=== PATIENT | male | born 1960 | race Caucasian/White ===

== ENCOUNTER → 2017-05-31 | Outpatient (CLI) | payer BC ==
--- NOTE | 2017-05-31 12:48 | US ---
EXAMINATION TYPE: US abdomen complete DATE OF EXAM: 05/31/2017 COMPARISON: US 05/26/2015, US 02/01/2017 CLINICAL HISTORY: K76.89 ABN LIVER FUNCTIONS. Cholecystectomy EXAM MEASUREMENTS: Liver Length: 17.1 cm Gallbladder Wall: Surgically absent CBD: 0.4 cm Spleen: 9.3 cm Right Kidney: 12.2 x 5.0 x 5.3 cm Left Kidney: 12.0 x 5.0 x 5.4 cm Pancreas: Tail obscured by overlying bowel gas, visualized portions show no abnormalities Liver: Coarse, heterogeneous echotexture. Measuring upper limits of normal Gallbladder: surgically absent Evidence for sonographic Villagran's sign: No CBD: wnl as visualized Spleen: wnl Right Kidney: No hydronephrosis or masses seen Left Kidney: No hydronephrosis or masses seen Upper IVC: wnl Abd Aorta: Limited visualization due to overlying bowel gas, visualized portions wnl IMPRESSION: 1. No acute ultrasound abnormality.
== END | disposition home or self-care (01) ==
LOC: RADUSWWP 07:40
PROVIDERS: ATTEND Internal Medicine
DX: K76.89 Other specified diseases of liver (principal)
CPT/HCPCS: 76700

== ENCOUNTER → 2018-04-02 | Outpatient (CLI) | payer BC ==
--- NOTE | 2018-04-02 07:37 | MR ---
EXAMINATION TYPE: MR cervical spine wo con DATE OF EXAM: 04/02/2018 COMPARISON: None HISTORY: Neck pain, stenosis CONTRAST: Performed utilizing 0 mL intravenous Gadavist gadolinium contrast. TECHNIQUE: Multiplanar multiecho imaging on a 3.0 Gila magnet is performed through the cervical spin e. FINDINGS: The craniovertebral junction is normal. Vertebral body alignment is normal. C7-T1: There is a central subligamentous disc herniation minimally anterior thecal sac compression. No cord contact or spinal canal stenosis is present. This has extension posterior to the C7 level. Ne ural foramen are patent. C6-7: Broad-based disc bulge is present with mild anterior thecal sac compression. No spinal canal st enosis present. Uncovertebral joint hypertrophy is present greater on the right causing moderate righ t foraminal stenosis.. C5-6: There is loss of disc height is level. Endplate changes and mild anterior thecal sac flattening . Uncovertebral joint hypertrophy is moderate bilateral foraminal narrowing.. C4-5: Broad-based disc bulge is moderate anterior thecal sac compression. Cord contact is present. No AP spinal canal stenosis present. There is borderline narrowing however. Neural foramen on the left is moderately narrowed due to uncovertebral joint hypertrophy.. C3-4: There is a central focal disc bulge which may have superior extension subligamentous region wit h mild anterior thecal sac compression. Cord contact is present. No spinal canal stenosis or neural f oraminal stenosis is present. C2-3: Broad-based disc bulge has moderate anterior thecal sac compression. No cord contact is evident . No spinal canal stenosis or neural foraminal stenosis is present.. IMPRESSIONS: 1. Subligamentous disc extension at the C3-4 level with mild anterior thecal sac compression and C7-T 1 minimal anterior thecal sac compression. 2. Disc bulging C6-7 C4-5 with anterior thecal sac compression. 3. There is moderate anterior thecal sac compression at C4-5 due to the disc bulging which has cord c ontact. Some spinal canal narrowing is present. 4. Mild to moderate foraminal narrowing due to uncovertebral joint hypertrophy discussed above.
== END | disposition home or self-care (01) ==
LOC: RADMRIMAIN 06:48
PROVIDERS: ATTEND Orthopaedic Surgery Orthopaedic Surgery of the Spine
DX: M48.02 Spinal stenosis, cervical region (principal); M50.221 Other cervical disc displacement at C4-C5 level
CPT/HCPCS: 72141

== ENCOUNTER → 2018-07-02 | Outpatient (CLI) | payer OTHER, BC ==
--- NOTE | 2018-07-02 15:39 | XR ---
EXAMINATION TYPE: XR forearm RT DATE OF EXAM: 07/02/2018 COMPARISON: NONE HISTORY: Pain Two views of the forearm demonstrate that the osseous structures appear to be intact and the joint sp aces appear to be preserved. There is no acute fracture or dislocation. Large olecranon spur noted. IMPRESSION: 1. No acute fracture or dislocation. Olecranon spur noted.
== END | disposition home or self-care (01) ==
LOC: RADXRYALE 15:18
PROVIDERS: ATTEND Internal Medicine
DX: M79.631 Pain in right forearm (principal)

== ENCOUNTER → 2018-12-26 | Outpatient (CLI) | payer OTHER ==
[2018-12-26 11:04] LABS: Basophils # (A) 0.1 k/uL (0-0.2); Basophils % (A) 2 %; Eosinophils # (A) 0.4 k/uL (0-0.7); Eosinophils % (A) 7 %; HCT 48.8 % (39.0-53.0); Lymphocytes # (A) 1.6 k/uL (1.0-4.8); Lymphocytes % (A) 29 %; MCH 30.8 pg (25.0-35.0); MCHC 34.7 g/dL (31.0-37.0); MCV 88.7 fL (80.0-100.0); Mean Platelet Volume 8.3; Monocytes # (A) 0.4 k/uL (0-1.0); Monocytes % (A) 8 %; Neutrophils # (A) 2.8 k/uL (1.3-7.7); Neutrophils % (A) 51 %; Platelet Count 188 k/uL (150-450); RBC 5.51 m/uL (4.30-5.90); RDW 12.8 % (11.5-15.5); WBC 5.5 k/uL (3.8-10.6)
[2018-12-26 11:15] LABS: Appearance,Urine Clear (Clear); Bilirubin,Urine Negative (Negative); Blood,Urine Negative (Negative); Color,Urine Yellow; Glucose,Urine (UA) Negative (Negative); Ketones,Urine Negative (Negative); Leukocyte Esterase,Urine Negative (Negative); Nitrite,Urine Negative (Negative); PH, Urine 5.5 (5.0-8.0); Protein,Urine Negative (Negative); Specific Gravity,Urine 1.026 (1.001-1.035); Urobilinogen,Urine <2.0 mg/dL (<2.0)
[2018-12-26 11:16] LABS: INR 0.9 (<1.2); Partial Thromboplastin Time 25.5 sec (22.0-30.0); Prothrombin Time 10.2 sec (9.0-12.0)
[2018-12-26 11:27] LABS: African American GFR (CKD) >90 (>60 ml/min/1.73 sqM); Anion Gap 9 mmol/L; Blood Urea Nitrogen 22 mg/dL (9-20); Calcium 9.5 mg/dL (8.4-10.2); Carbon Dioxide 22 mmol/L (22-30); Chloride 107 mmol/L (98-107); Glucose 79 mg/dL (74-99); Sodium 138 mmol/L (137-145)
[2018-12-26 11:29] LABS: Potassium 5.3 mmol/L (3.5-5.1)
--- NOTE | 2018-12-26 11:45 | XR ---
EXAMINATION TYPE: XR chest 2V DATE OF EXAM: 12/26/2018 COMPARISON: 05/24/2015 INDICATION: Z01.818 TECHNIQUE: Frontal and lateral views of the chest are obtained. FINDINGS: The heart size is normal. The pulmonary vasculature is normal. The lungs are clear. IMPRESSION: 1. No acute pulmonary process.
== END | disposition home or self-care (01) ==
LOC: LABPAT 09:57
PROVIDERS: ATTEND Orthopaedic Surgery Orthopaedic Surgery of the Spine
DX: Z01.812 Encounter for preprocedural laboratory examination (principal); Z01.818 Encounter for other preprocedural examination; M48.02 Spinal stenosis, cervical region
CPT/HCPCS: 36415; 71046; 80048; 81003; 85025; 85610; 85730

== ENCOUNTER 2019-01-01 05:49 | Observation (INO) | payer BC, OTHER ==
[2019-01-01] MEDS ORDERED: NITROGLYCERIN SL TABS 0.4 MG TAB SUBLINGUAL STA (06:05)
[2019-01-01] MEDS ORDERED: ASPIRIN 81 MG PO STA (06:05)
--- NOTE | 2019-01-01 06:09 | ED ---
Chest Pain HPI - General Chief Complaint: Chest Pain Stated Complaint: Chest pain Time Seen by Provider: 01/01/19 05:53 Source: patient, RN notes reviewed Mode of arrival: ambulatory Limitations: no limitations - History of Present Illness Initial Comments: 58-year-old male presents emergency Department chief complaint of chest pain that started last night. Patient states is more of a sudden onset of discomfort. Patient states that his left-sided radiates to his shoulder. Patient states he went to sleep thinking it was just gas pain, states he woke up the symptoms again this morning. Patient states he did feel slightly diaphoretic and nauseated. Patient had no vomiting. Patient states that he has no cardiac history denies history of hypertension, hyperlipidemia, diabetes no smoking history. Patient states he just had a have physical for surgical clearance for cervical decompression. Patient denies any family heart history. Patient states does hurt when he takes a deep inspiration. Denies any leg pain, leg swelling. - Related Data Home Medications Medication Instructions Recorded Confirmed Pantoprazole Sodium [Protonix] 20 tab PO DAILY 02/02/15 12/29/18 Celecoxib [CeleBREX] 50 mg PO DAILY 12/29/18 12/29/18 Multivitamins, Thera [Multivitamin 1 tab PO DAILY 12/29/18 12/29/18 (formulary)] traMADol HCL [Ultram] 50 mg PO BID 12/29/18 12/29/18 Allergies Allergy/AdvReac Type Severity Reaction Status Date / Time No Known Allergies Allergy Verified 12/29/18 14:38 Review of Systems ROS Statement: Those systems with pertinent positive or pertinent negative responses have been documented in the HPI. ROS Other: All systems not noted in ROS Statement are negative. EKG Findings - EKG Comments: EKG Findings:: EKG performed at 5:5 feet normal sinus rhythm rate of 92, IA 176 QRS 76 QT/QTC 354/437. Patient depression. Past Medical History Past Medical History: GERD/Reflux Additional Past Medical History / Comment(s): arthritis History of Any Multi-Drug Resistant Organisms: None Reported Past Surgical History: Appendectomy, Cholecystectomy, Orthopedic Surgery Additional Past Surgical History / Comment(s): vasectomy, lasic right eye Past Psychological History: No Psychological Hx Reported Past Alcohol Use History: None Reported, Occasional General Exam Limitations: no limitations General appearance: alert, in no apparent distress Head exam: Present: atraumatic, normocephalic, normal inspection Eye exam: Present: normal appearance, PERRL, EOMI. Absent: scleral icterus, conjunctival injection, periorbital swelling ENT exam: Present: normal exam, normal oropharynx, mucous membranes moist Neck exam: Present: normal inspection, full ROM. Absent: tenderness, meningismus, lymphadenopathy Respiratory exam: Present: normal lung sounds bilaterally. Absent: respiratory distress, wheezes, rales, rhonchi, stridor Cardiovascular Exam: Present: regular rate, normal rhythm, normal heart sounds. Absent: systolic murmur, diastolic murmur, rubs, gallop, clicks GI/Abdominal exam: Present: soft, normal bowel sounds. Absent: distended, tenderness, guarding, rebound, rigid Neurological exam: Present: alert, oriented X3, CN II-XII intact Skin exam: Present: warm, dry, intact, normal color. Absent: rash Course Vital Signs 01/01/19 01/01/19 01/01/19 05:50 06:10 07:03 Temperature 98.3 F 98.2 F Pulse Rate 93 89 70 Respiratory 20 17 16 Rate Blood Pressure 149/99 143/95 117/81 O2 Sat by Pulse 97 91 L 99 Oximetry Chest Pain MDM - MDM 58-year-old male presents from for chest pain. Patient was a chest pain workup is negative this time patient will be admitted for chest pain observation and workup. Disposition Clinical Impression: Chest pain Disposition: ADMITTED IP TO THIS HOSP Referrals: None,Stated [REFERRING] - 1-2 days
[2019-01-01 06:21] LABS: Basophils # (A) 0.1 k/uL (0-0.2); Basophils % (A) 1 %; Eosinophils # (A) 0.2 k/uL (0-0.7); Eosinophils % (A) 2 %; HCT 46.4 % (39.0-53.0); HGB 15.6 gm/dL (13.0-17.5); Lymphocytes # (A) 1.2 k/uL (1.0-4.8); Lymphocytes % (A) 9 %; MCHC 33.7 g/dL (31.0-37.0); MCV 89.1 fL (80.0-100.0); Mean Platelet Volume 7.5; Monocytes # (A) 0.6 k/uL (0-1.0); Monocytes % (A) 4 %; Neutrophils # (A) 11.1 k/uL (1.3-7.7); Neutrophils % (A) 83 %; Platelet Count 180 k/uL (150-450); RDW 12.8 % (11.5-15.5); WBC 13.3 k/uL (3.8-10.6)
[2019-01-01 06:29] LABS: ALT 108 U/L (21-72); AST 39 U/L (17-59); African American GFR (CKD) >90 (>60 ml/min/1.73 sqM); Albumin 4.6 g/dL (3.5-5.0); Alkaline Phosphatase 59 U/L (38-126); Anion Gap 12 mmol/L; Blood Urea Nitrogen 24 mg/dL (9-20); Calcium 9.9 mg/dL (8.4-10.2); Carbon Dioxide 22 mmol/L (22-30); Chloride 105 mmol/L (98-107); Glucose 128 mg/dL (74-99); Magnesium 1.9 mg/dL (1.6-2.3); Potassium 4.5 mmol/L (3.5-5.1); Sodium 139 mmol/L (137-145); Total Protein 7.9 g/dL (6.3-8.2)
[2019-01-01 06:37] LABS: D-Dimer 0.21 mg/L FEU (<0.60); Partial Thromboplastin Time 24.8 sec (22.0-30.0); Prothrombin Time 10.3 sec (9.0-12.0)
--- NOTE | 2019-01-01 07:02 | XR ---
EXAM: XR Chest, 2 Views CLINICAL HISTORY: Chest Pain TECHNIQUE: Frontal and lateral views of the chest. COMPARISON: 12/26/2018 FINDINGS: Lungs: Mild peribronchial cuffing is suspected, more conspicuous on this study than the prior, which may represent infectious versus inflammatory small airways disease. Pleural space: Unremarkable. No pneumothorax. Heart: Unremarkable. No cardiomegaly. Mediastinum: Unremarkable. Bones/joints: Unremarkable. IMPRESSION: Mild peribronchial cuffing is suspected, more conspicuous on this study than the prior, which may represent infectious versus inflammatory small airways disease.
[2019-01-01] MEDS ORDERED: NITROGLYCERIN SL TABS 0.4 MG TAB SUBLINGUAL PRN (07:31)
[2019-01-01] MEDS ORDERED: HEPARIN SODIUM,PORCINE 5,000 UNIT/ML 1 ML VIAL IV ONE (07:31)
[2019-01-01] MEDS ORDERED: HEPARIN SOD,PORK IN 0.45% NACL 25,000 UNIT in 0.45% NACL 1 250ML.BAG IV SCH (07:45)
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
[2019-01-01] MEDS ORDERED: TEMAZEPAM 15 MG CAP PO PRN (17:41)
[2019-01-01] MEDS: HYDROcodone/APAP 10-325MG 1 EACH TAB PO PRN (18:22)
[2019-01-02] MEDS: HYDROcodone/APAP 10-325MG 1 EACH TAB PO PRN ×2 (03:28→11:00)
[2019-01-02 04:28] LABS: Cholesterol 200 mg/dL (<200); HDL Cholesterol 47 mg/dL (40-60); LDL Cholesterol,Calculated 131 mg/dL (0-99); Triglycerides 109 mg/dL (<150)
[2019-01-02] MEDS ORDERED: AMINOPHYLLINE 500 MG/20 ML VIAL IV PRN (06:00)
[2019-01-02] MEDS ORDERED: CAFFEINE CITRATE 60 MG/3 ML VIAL IV PRN (06:00)
[2019-01-02] MEDS ORDERED: DIPYRIDAMOLE 62 MG in SODIUM CHLORIDE 0.9% 37.6 ML IV ONE (07:00)
[2019-01-02] MEDS ORDERED: PANTOPRAZOLE 40 MG TABLET PO SCH (07:30)
[2019-01-02] MEDS ORDERED: MELOXICAM 7.5 MG TAB PO SCH (09:00)
[2019-01-02] MEDS ORDERED: ASPIRIN 81 MG PO SCH (09:00)
[2019-01-02] MEDS ORDERED: MULTIVITAMINS, THERA 1 EACH TAB PO SCH (09:00)
[2019-01-02] MEDS ORDERED: ASPIRIN 325 MG TAB PO SCH (09:00)
[2019-01-02 09:38] VITALS: TEMP 97.9
[2019-01-02] MEDS ORDERED: AMINOPHYLLINE 500 MG/20 ML VIAL IV ONE (09:55)
--- NOTE | 2019-01-02 11:03 | NM ---
EXAMINATION TYPE: NM stress persantine cardiolit DATE OF EXAM: 01/02/2019 COMPARISON: NONE HISTORY: Chest pain TECHNIQUE: After the intravenous administration of 10.1 mCi Tc 99m Sestamibi - Cardiolite resting SP ECT images acquired 45 minutes post injection. The patient received 62 mg Persantine, 25.2 mCi Tc 99m Sestamibi - Stress images obtained 30 minutes post injection FINDINGS: Review of stress and rest SPECT images demonstrates no distinct perfusion abnormality. Gated analysi s shows normal wall motion with an estimated left ventricular ejection fraction of 56 %. TID is withi n normal limits measured at 1.08. IMPRESSION: No scintigraphic evidence for reversible ischemia.
[2019-01-02 12:18] VITALS: BP 167/82; PULSE 55; RESP 17
--- NOTE | 2019-01-02 14:36 | ECHOF ---
Referral Reason:cp MEASUREMENTS -------- HEIGHT: 175.3 cm WEIGHT: 108.9 kg BP: RVIDd: 3.9 cm (< 3.3) IVSd: 1.1 cm (0.6 - 1.1) LVIDd: 4.1 cm (3.9 - 5.3) LVPWd: 1.5 cm (0.6 - 1.1) IVSs: 1.4 cm LVIDs: 3.5 cm LVPWs: 1.1 cm Ao Diam: 3.2 cm (2.0 - 3.7) AV Cusp: 2.0 cm (1.5 - 2.6) MV EXCURSION: 24.599 mm (> 18.000) MV EF SLOPE: 146 mm/s (70 - 150) EPSS: 0.3 cm MV E Pako: 0.60 m/s MV DecT: 181 ms MV A Pako: 0.64 m/s MV E/A Ratio: 0.93 FINDINGS -------- Sinus rhythm. This was a techncally difficult study with suboptimal views, , Lumason utilized for enhancement of im ages. The left ventricular size is normal. There is mild concentric left ventricular hypertrophy. Overa ll left ventricular systolic function is normal with, an EF between 55 - 60 %. The right ventricle is mild to moderately enlarged. The left atrial size is normal. The right atrial size is normal. 5.0mg OF Lumason UTLIZED: 2 OR MORE WALL SEGMENTS NOT VISUALIZED. The aortic valve was not well visualized. Mild mitral regurgitation is present. Mild tricuspid regurgitation present. Right ventricular systolic pressure is normal at < 35 mmHg. There is no evidence of pulmonary hypertension. The pulmonic valve was not well visualized. The aortic root size is normal. There is no pericardial effusion. CONCLUSIONS -------- 1. Sinus rhythm. 2. This was a techncally difficult study with suboptimal views, , Lumason utilized for enhancement of images. 3. The left ventricular size is normal. 4. There is mild concentric left ventricular hypertrophy. 5. Overall left ventricular systolic function is normal with, an EF between 55 - 60 %. 6. The right ventricle is mild to moderately enlarged. 7. The left atrial size is normal. 8. The right atrial size is normal. 9. 5.0mg OF Lumason UTLIZED: 2 OR MORE WALL SEGMENTS NOT VISUALIZED. 10. The aortic valve was not well visualized. 11. Mild mitral regurgitation is present. 12. Mild tricuspid regurgitation present. 13. Right ventricular systolic pressure is normal at < 35 mmHg. 14. There is no evidence of pulmonary hypertension. 15. The pulmonic valve was not well visualized. 16. The aortic root size is normal. 17. There is no pericardial effusion. IN CLASS SPECIAL EDUCATION TEACHER: Sujata Robles RDCS
--- NOTE | 2019-01-02 15:37 | EST ---
EXERCISE STRESS AGE: 58 SEX: Male HT: 69" WT: 240# PROTOCOL: Persantine Cardiolite STAGE: DURATION OF EXERCISE: HEART RATE REST: 59 BLOOD PRESSURE REST: 137/83 MAXIMUM HEART RATE ACHIEVED: 96 MAXIMUM BLOOD PRESSURE: 137/83 85% MPHR: 100% MPHR: METS: INDICATIONS: Chest pain. CLINICAL INFORMATION: A Persantine Cardiolite study was performed. Persantine infusion was given over a period of 4 minutes. The resting heart rate is 59 beats per minute with a maximum heart rate of 86 beats per minute. Maximum blood pressure of 131/54 mmHg was noted. Resting EKG shows normal sinus rhythm with normal CT interval and QRS duration and normal ST-T waves. No ST-segment depression suggestive of ischemia is noted. The results of the nuclear study will follow. RASHI / CELESTINAN: [id number] /
--- NOTE | 2019-01-02 15:42 | P.DS ---
Providers Date of admission: 01/01/19 07:34 Attending physician: Keith Burleson Consults: 01/01/19 07:31 Consult Physician Urgent Consulting Provider: Simone Barragan Consult Reason/Comments: chest pain Do you want consulting provider notified?: Yes Primary care physician: Edwige Vazquez Hospital Course: Patient was admitted for chest pain does have some typical features patient was ruled out acute coronary syndromes after which the patient underwent stress test which was negative. Patient's symptomatology is probably because of cervical spine disease. Patient does have bronchitis with some bronchospasm for which patient will be given doxycycline and albuterol patient will be discharged today patient can get the his cervical spine decompression surgery. PHYSICAL EXAMINATION: GENERAL: The patient is alert and oriented x3, not in any acute distress. Well developed, well nourished. HEENT: Pupils are round and equally reacting to light. EOMI. No scleral icterus. No conjunctival pallor. Normocephalic, atraumatic. No pharyngeal erythema. No thyromegaly. CARDIOVASCULAR: S1 and S2 present. No murmurs, rubs, or gallops. PULMONARY: Chest is clear to auscultation, no wheezing or crackles. ABDOMEN: Soft, nontender, nondistended, normoactive bowel sounds. No palpable organomegaly. MUSCULOSKELETAL: No joint swelling or deformity. EXTREMITIES: No cyanosis, clubbing, or pedal edema. NEUROLOGICAL: Gross neurological examination did not reveal any focal deficits. SKIN: No rashes. Rest of the chronic medical problems and hospitalization course please refer to my dictation of H&P from yesterday Plan - Discharge Summary Discharge Rx Participant: No New Discharge Prescriptions: New Doxycycline Monohydrate [Monodox] 100 mg PO BID 3 Days #6 cap Albuterol Inhaler [Ventolin Hfa Inhaler] 1 - 2 puff INHALATION Q6HR PRN #1 inhaler PRN Reason: Shortness Of Breath Or Wheezing No Action Pantoprazole Sodium [Protonix] 40 mg PO DAILY traMADol HCL [Ultram] 50 mg PO BID Multivitamins, Thera [Multivitamin (formulary)] 1 tab PO DAILY Celecoxib [CeleBREX] 200 mg PO DAILY Discharge Medication List Pantoprazole Sodium [Protonix] 40 mg PO DAILY 02/02/15 [History] Multivitamins, Thera [Multivitamin (formulary)] 1 tab PO DAILY 12/29/18 [History] traMADol HCL [Ultram] 50 mg PO BID 12/29/18 [History] Celecoxib [CeleBREX] 200 mg PO DAILY 01/01/19 [History] Albuterol Inhaler [Ventolin Hfa Inhaler] 1 - 2 puff INHALATION Q6HR PRN #1 inhaler 01/02/19 [Rx] Doxycycline Monohydrate [Monodox] 100 mg PO BID 3 Days #6 cap 01/02/19 [Rx] Follow up Appointment(s)/Referral(s): None,Stated [REFERRING] - 1-2 days Edwige Vazquez MD [Primary Care Provider] - 1 Week Discharge Disposition: HOME SELF-CARE
== END 2019-01-02 13:43 | disposition home or self-care (01) ==
LOC: EC 05:49 → 1SOBS 07:34
PROVIDERS: ADMIT Hospitalist; ATTEND Hospitalist
DX: R07.89 Other chest pain (principal); R07.81 Pleurodynia; J98.01 Acute bronchospasm; J40 Bronchitis, not specified as acute or chronic; R03.0 Elevated blood-pressure reading, without diagnosis of hypertension; R61 Generalized hyperhidrosis; R11.0 Nausea; R42 Dizziness and giddiness; E66.9 Obesity, unspecified; Z68.35 Body mass index [BMI] 35.0-35.9, adult; K21.9 Gastro-esophageal reflux disease without esophagitis; M19.90 Unspecified osteoarthritis, unspecified site; M54.2 Cervicalgia; M54.9 Dorsalgia, unspecified; M25.512 Pain in left shoulder; M25.511 Pain in right shoulder; G89.29 Other chronic pain; Z79.1 Long term (current) use of non-steroidal anti-inflammatories (NSAID); Z79.899 Other long term (current) drug therapy; Z80.3 Family history of malignant neoplasm of breast; Z82.49 Family history of ischemic heart disease and other diseases of the circulatory system; Z83.3 Family history of diabetes mellitus; Z98.1 Arthrodesis status
CPT/HCPCS: 96366 ×2; 96376; 96365; 99285; 36415; 93005; 93017; 93306; 85379; 80061; 80053; 83690; 83735; 84484; 85025; 85610; 85730; 71046; 78452; G0378 ×2; A9500; J1644 ×2; J0280; J1245; Q9950

== ENCOUNTER 2019-01-05 11:58 | Observation (INO) | payer OTHER, BC ==
[2018-12-29 14:48] VITALS: BMI 35.4
[~2019-01-05 11:58] MED LIST: BACITRACIN 50,000 UNIT, POLYMYXIN B 500,000 UNIT in SODIUM CHLORIDE 0.9% IRRIGATIO 1,00... IRRIGATION ONE; DEXAMETHASONE SOD PHOSPHATE 10 MG/ML 1 ML VIAL IV ONE; LIDOCAINE 1% 20 ML VIAL (10MG/ML) FOR IV START INTRADERMA PRN; MIDAZOLAM 2 MG/2 ML VIAL IV PRN; fentaNYL (PF) 50 MCG/ML 2 ML AMP IV PRN
[2019-01-05] MEDS: LACTATED RINGERS 1,000 ML IV SCH ×4 (12:22→22:14)
[2019-01-05] MEDS ORDERED: ePHEDrine SULFATE/0.9% NACL/PF 50 MG/5 ML SYRINGE IV ONE (13:13)
[2019-01-05] MEDS ORDERED: DEXAMETHASONE SOD PHOS (MDV) 100 MG/10 ML VIAL ONE (13:13)
[2019-01-05] MEDS ORDERED: NEOSTIGMINE 1 MG/ML 10 ML VIAL ONE (13:13)
[2019-01-05] MEDS ORDERED: HYDROmorphone (PF) 1 MG/ML ONE (13:13)
[2019-01-05] MEDS ORDERED: GLYCOPYRROLATE 0.2 MG/ML 2 ML VIAL ONE (13:13)
[2019-01-05] MEDS ORDERED: MIDAZOLAM 2 MG/2 ML VIAL ONE (13:13)
[2019-01-05] MEDS ORDERED: SUCCINYLCHOLINE CHLORIDE 100 MG/5 ML SYR IV ONE (13:13)
[2019-01-05] MEDS ORDERED: PROPOFOL 10 MG/ML 20 ML VIAL IV ONE (13:13)
[2019-01-05] MEDS ORDERED: fentaNYL (PF) 50 MCG/ML 2 ML AMP ONE (13:13)
[2019-01-05] MEDS ORDERED: ALBUTEROL INHALER 60 PUFF/8 GM INHALER INHALATION ONE (13:13)
[2019-01-05] MEDS ORDERED: ROCURONIUM BROMIDE 10 MG/ML 10 ML VIAL IV ONE (13:13)
[2019-01-05] MEDS ORDERED: LIDOCAINE 1% INJ 10MG/ML (20 ML MDV) ONE (13:13)
[2019-01-05] MEDS ORDERED: BUPIVACAINE (PF) 0.25% 30 ML VIAL SQ ONE ×3 (13:50)
--- NOTE | 2019-01-05 14:41 | XR ---
EXAMINATION TYPE: XR cervical spine 1V DATE OF EXAM: 01/05/2019 COMPARISON: NONE HISTORY: Intraoperative needle placement TECHNIQUE: Single intraoperative crosstable lateral view was performed of the cervical spine FINDINGS/IMPRESSION: Localization of the C4-C5 intervertebral disc space level is seen from an anteri or approach in an intubated patient in this crosstable lateral intraoperative single view of the cerv ical spine.
[2019-01-05] MEDS ORDERED: LACTATED RINGERS 1,000 ML IV ONE (14:51)
[2019-01-05] MEDS ORDERED: ONDANSETRON 4 MG/2 ML VIAL IVP PRN (15:33)
[2019-01-05] MEDS ORDERED: MAGNESIUM HYDROXIDE 2,400 MG/10 ML CUP PO PRN (15:33)
[2019-01-05] MEDS ORDERED: HYDROmorphone 0.5 MG/0.5 ML SYRINGE IVP PRN (15:33)
--- NOTE | 2019-01-05 15:41 | P.OP ---
Date of Procedure: 01/05/19 Preoperative Diagnosis: Cervical stenosis C4 5 and C6 7, degenerative disc disease C4 5 and C6 7, history of prior cervical fusion C5 6, bilateral upper extremity radiculopathy worse on the left than the right, neck pain Postoperative Diagnosis: Same Anesthesia: GETA Pathology: none sent Condition: stable Disposition: PACU Description of Procedure: BRIEF OPERATIVE NOTE Preoperative Diagnosis:Cervical stenosis C4 5 and C6 7, degenerative disc disease C4 5 and C6 7, history of prior cervical fusion C5 6, bilateral upper extremity radiculopathy worse on the left than the right, neck pain Postoperative Diagnosis:Cervical stenosis C4 5 and C6 7, degenerative disc disease C4 5 and C6 7, history of prior cervical fusion C5 6, bilateral upper extremity radiculopathy worse on the left than the right, neck pain Procedure: Anterior cervical decompression with discectomy and fusion C4 5 and C6 7 Placement of interbody graft C4 5 and C6 7 Application of anterior cervical plate C4 5 6 and 7 Surgeon: Dr. Lezama Economics Instructor: Sukhdev Huertas is present throughout the entire the case persistence during positioning, dissection, exposure, visualization, and all crucial elements of the case as well as closure. Anesthesia: General anesthesia per Dr. Romano Estimated blood loss: Approximately 100 mL Complications: None apparent Components implanted: K2M Cassia anterior cervical plate system measuring 57 mm with 3.5 x 40 mm screws and two Vikos allograft bone graft and 1 mL of DBX bone putty Disposition: To recovery room in good stable condition. OPERATIVE INDICATIONS The patient has had long-standing issues in their neck and upper extremities. Many years ago he underwent anterior cervical decompression with discectomy and fusion at C5 6 and had done well with this. However over the past couple years has been developing worsening pain at his neck with upper extremity symptoms and radiculopathy. Patient was found have adjacent level degeneration above and below his prior fusion and stenosis with disc protrusion at C45 and C6 7 which collided well with his neck and upper extremity symptoms. The patient has been through conservative treatment. He is not having any lasting benefit despite aggressive conservative care. The patient did have some chest tightness for the last week and had full workup in regards to any cardiac issues. His found have some bronchitic exacerbation which has been treated appropriately and he was cleared for surgical intervention. We discussed various treatment options in cluding surgery, and the patient wishes to proceed with surgery We discussed the risk, patient's alternatives and benefits of surgery including but not limited to, risk of bleeding risk of infection, risk of need for further surgery, risk of decreased, loss of motion, muscle function, malunion nonunion, hardware failure, nerve damage, paralysis, heart attack, and . OPERATIVE SUMMARY After discussing all the risks, patient alternatives and benefits at length, the patient elected to proceed with surgical intervention, signed informed consent, and presented for their procedure. The patient was seen and examined in the preoperative holding area and the surgical site was marked. The patient was given antibiotics and brought to the operating room. The patient was positioned on the operating room table in a supine position being careful to pad any bony prominences and pressure points. The patient was sedated and intubated by anesthesia in standard fashion. Once the airway and C-spine were stabilized the patient's arms were padded and tucked at her side, with her shoulders gently taped. The head was placed in a donut pad with the neck in good neutral alignment and position. We were careful to maintain the patient's cervical spine and good neutral alignment and position throughout. The patient was prepped and draped in a normal standard fashion. An appropriate timeout and keystone protocol performed. We were able to proceed with the surgery. The local wound area was infiltrated with local anesthetic. An incision was made transversely approximately 2-1/2 cm over the appropriate levels at C56 on the right. Dissection was taken down subcutaneously to the level of the platysma which was split in line with its fibers. Dissection was taken with a carotid approach, with the trachea and esophagus medial and the carotid sheath laterally. We dissected down to the anterior surface of the vertebral bodies. Intraoperative x-ray was taken which showed a marker at the appropriate level of C4 5. With the appropriate level positively confirmed, we were able to proceed with discectomy at the appropriate levels starting at C4 5 and then moving to see 67. All of the operative levels were exposed appropriately. The C5 6 level was explored and found to have excellent solid fusion. The patient had all their twitches back, and there was no evidence of recurrent laryngeal issue. The wound was copiously irrigated and suctioned dry as had been done periodically throughout the case. At the appropriate level/levels, starting at C4 5 and then moving C6 7 I established an annulotomy with an 11 blade scalpel. A discectomy was performed with a combination of pituitary rongeurs, curettes, a high-speed bur, and Kerrison rongeurs. The posterior longitudinal ligament was taken down as were any posterior osteophytes. There was significant disc protrusion and posterior spurring with significant central and bilateral foraminal stenosis which was remedied with the decompression and discectomy. This gave good central and bilateral foraminal decompression. There is no evidence of any dural tear or leak. The endplates were prepared with a high-speed bur. With the endplates in good parallel position, I was able to size for the appropriate size interbody graft. The wound was irrigated and suctioned dry the graft was prepared and malleted into position. It had good alignment and position with the anterior surface flush with the anterior surface of the vertebral bodies. This was done similarly the appropriate levels. With the grafts intact, I was able to measure and contour and appropriate sized plate. The plate was positioned at the midline over the appropriate levels using 1 plate from C4 to C7. Screw holes were established with a hand drill and drill guide. Screws were placed in good alignment and position with excellent bony purchase. They were seated under the locking device. The construct was checked and found to be stable. Intraoperative x-ray was taken which showed good alignment and position of the implants at the appropriate levels. There was no evidence of any dural tear or leak. Good hemostasis was maintained. The wound was copiously irrigated and suctioned dry as had been done periodically throughout the case. The platysma was closed with absorbable suture. The subcutaneous tissue was closed. The subcuticular tissue was closed with absorbable suture. The wound was cleaned and dried and dressed appropriately. A soft cervical collar was placed appropriately. The patient was woken up by anesthesia, extubated, transferred back gently to their hospital bed and brought to the recovery room in good stable condition. The patient will be admitted to the hospital for appropriate postoperative care, medical management and monitoring. We will continue to follow them closely about the postoperative course.
--- NOTE | 2019-01-05 15:52 | XR ---
EXAMINATION TYPE: XR cervical spine 1V DATE OF EXAM: 01/05/2019 COMPARISON: Intraoperative crosstable lateral localization image of the same date HISTORY: Hardware placement TECHNIQUE: Single intraoperative crosstable lateral view of the cervical spine FINDINGS/IMPRESSION: Anterior cervical fusion device is partially visualized bridging at least the C4 -C5, and likely the C6 vertebral levels. The lower portion of the fusion device is obscured. Patient is noted to be intubated.
[2019-01-05] MEDS: HYDROmorphone 1 MG/ML 1 ML SYRINGE IVP ONE ×2 (16:40→16:46)
[2019-01-05] MEDS: SODIUM CHLORIDE 0.9% 1,000 ML IV SCH ×2 (17:18→19:49)
[2019-01-05] MEDS: HYDROcodone/APAP 5-325MG 1 EACH TAB PO PRN ×2 (18:09→22:07)
[2019-01-05] MEDS: traMADol 50 MG TAB PO SCH (19:47)
[2019-01-05] MEDS ORDERED: DOXYCYCLINE 100 MG CAP PO SCH (21:00)
[2019-01-05] MEDS: BENZOCAINE/MENTHOL LOZENG 1 EACH LOZENGE MUCOUS MEM PRN (22:10)
[2019-01-06] MEDS: HYDROmorphone 1 MG/ML 1 ML SYRINGE IVP PRN ×2 (00:29→22:14)
[2019-01-06] MEDS: HYDROcodone/APAP 5-325MG 1 EACH TAB PO PRN ×3 (06:01→16:17)
[2019-01-06] MEDS: ALBUTEROL NEBULIZED 2.5 MG/3 ML INHALATION PRN ×2 (08:11→11:50)
[2019-01-06] MEDS: MULTIVITAMINS, THERA 1 EACH TAB PO SCH (08:45)
[2019-01-06] MEDS: PANTOPRAZOLE 40 MG TABLET PO SCH (08:45)
[2019-01-06] MEDS: traMADol 50 MG TAB PO SCH ×2 (08:45→20:46)
[2019-01-06] MEDS: BENZOCAINE/MENTHOL LOZENG 1 EACH LOZENGE MUCOUS MEM PRN ×2 (09:36→16:18)
[2019-01-06] MEDS: LACTATED RINGERS 1,000 ML IV SCH (10:07)
--- NOTE | 2019-01-06 13:01 | P.PN ---
Progress Note - Text Progress Note Date: 01/06/19 Orthopedic Spine Patient is a pleasant 38-year-old male who is seen at the bedside following anterior cervical decompression and fusion performed yesterday. Patient states he continues to have significant left upper extremity radiculopathy symptoms postoperatively it is exacerbated with left rotation of his cervical spine. He is experiencing posterior cervical pain and pain over the trapezius bilaterally. He has significant difficulty with sleeping last night due to his pain. He required IV Dilaudid which did help improve his pain where he was able to get some sleep. He does not feel his pain is adequately controlled where he could be discharged home. Currently does not complain of nausea, vomiting, fever, or chills. Patient is eating and voiding freely without difficulty. Patient does have a history of recent shortness of breath and difficulty breathing. He presented to the emergency department last week. He was diagnosed with bronchitis. He was able to receive to breathing treatments during his admission which has helped improve his breathing. Physical Exam Cervical Fusion: Status post surgical day number 1 Patient is awake, alert, and oriented 3 Vital signs stable Good chest excursion with deep inspiration and expiration No significant pain with palpation of the posterior cervical spine and trapezius bilaterally [employer] strength, thumb strength, interosseous strength, biceps strength, triceps strength, and shoulder strength positive sustained bilaterally No signs or symptoms of DVT; no calf pain Dressing is clean, dry, and intact; no erythema, purulence, or signs of infection Patient is wearing soft cervical collar Assessment: Status post C4-5 and C6-7 anterior cervical decompression and fusion Cervical degenerative disc disease History of previous cervical fusion C5-6 Cervicalgia Upper extremity radiculopathy currently greater on the left than the right Recent difficulty breathing and shortness of breath Bronchitis Plan: 1. Ambulate as tolerated; work with Physical Therapy to increase mobilization 2. Continue pain control with IV and oral medications; will plan to wean off IV Dilaudid in anticipation for discharge home tomorrow 3. Patient may shower with Tegaderm and silver dressing; patient may remove Tegaderm in 4 days and shower without a dressing at that time 4. We will plan for consultation with medicine for medical management including recent shortness of breath and bronchitis 5. We will continue to follow the patient closely; if the patient is able to improve, we'll plan for discharge home tomorrow, 01/07/2019 6. Patient can follow-up with Sukhdev Andino PA-C or Dr. Nick Lezama at [facility] in 2-3 weeks following discharge
[2019-01-06] MEDS: SODIUM CHLORIDE 0.9% 1,000 ML IV SCH (18:22)
--- NOTE | 2019-01-06 23:16 | XR ---
EXAMINATION TYPE: XR chest 1V portable DATE OF EXAM: 01/06/2019 COMPARISON: 01/01/2019 HISTORY: Pneumonia TECHNIQUE: Single frontal view of the chest is obtained. FINDINGS: Heart and mediastinum are normal. Lungs are clear. Diaphragm is normal. Bony thorax is int act. There is cervical spine fusion surgery. IMPRESSION: Normal chest. No change.
--- NOTE | 2019-01-06 23:57 | CONS ---
CONSULTATION DATE OF SERVICE: 01/06/2019 REASON FOR CONSULTATION: Advice regarding history of recent bronchitis, requested by Dr. Lezama. HISTORY OF PRESENT ILLNESS: This 58-year-old gentleman with a past medical history of GERD, history of DJD, history of chronic back pain, appendectomy, cholecystectomy, being followed by Dr. Vazquez in the outpatient setting, was recently admitted with bronchitis, was treated with a course of antibiotics in the form of doxycycline as well as albuterol. The patient underwent anterior cervical decompression and discectomy, fusion C4-5, C6-7 for severe DJD as well as radiculopathy. The patient is complaining of some slight wheezing, especially on the left side of the chest. Otherwise, there is no history of any fever, rigor or chills; no history of headache, loss of consciousness, seizures. PAST MEDICAL HISTORY: 1. History of GERD. 2. DJD. 3. History of appendectomy. 4. History of recent bronchitis. HOME MEDICATIONS: 1. Ultram 50 mg p.o. b.i.d. 2. Protonix 40 mg daily. 3. Multivitamins 1 p.o. daily. 4. Monodox 100 mg p.o. b.i.d. 5. Celebrex 200 mg p.o. b.i.d. 6. Ventolin 1-2 puffs q.6 p.r.n. ALLERGIES: NONE. FAMILY HISTORY: History of dementia in the family. SOCIAL HISTORY: No history of smoking. Occasional alcohol intake. REVIEW OF SYSTEMS: ENT: No diminished hearing. No diminished vision. CARDIOVASCULAR SYSTEM: No angina, palpitations. RESPIRATORY SYSTEM: As mentioned earlier. GI: No nausea, vomiting. : No dysuria or retention. NERVOUS SYSTEM: No numbness, weakness. ALLERGY/IMMUNOLOGY: As mentioned earlier. MUSCULOSKELETAL: As mentioned earlier. HEMATOLOGY/ONCOLOGY: No history of anemia. ENDOCRINE: No history of diabetes, hypothyroidism. CONSTITUTIONAL: As mentioned earlier. DERMATOLOGY: Negative. RHEUMATOLOGY: Negative. PSYCHIATRY: Negative. PHYSICAL EXAMINATION: Patient is alert, oriented x3. Pulse is 88, blood pressure 139/84, respirations 16, temperature 98.2, pulse ox 92% on room air. HEENT: Conjunctivae normal. Oral mucosa moist. NECK: No jugular venous distention. No carotid bruit. No lymph node enlargement. CARDIOVASCULAR SYSTEM: S1, S2 muffled. RESPIRATORY SYSTEM: Breath sounds diminished at the bases. A few scattered rhonchi, especially on the left side. ABDOMEN: Soft, non-tender. No mass palpable. LEGS: No edema. No swelling. NERVOUS SYSTEM: Higher functions as mentioned earlier. Moves all 4 limbs. No focal motor or sensory deficit. LYMPHATICS: No lymph node palpable in neck, axillae or groin. SKIN: No ulcer, rash, bleeding. EXAMINATION OF THE NECK: Status post surgery. LABS: Not available, but the most recent labs are hematology WBC 13.3. Coags are negative. CMP showed glucose 128 and 128. Cholesterol 200. ASSESSMENT: 1. Status post anterior cervical decompression with discectomy, fusion C4-5, C6-7, for severe cervical degenerative joint disease. 2. History of recent acute bronchitis. 3. History of degenerative joint disease. 4. History of appendectomy. 5. History of cholecystectomy. 6. History of gastroesophageal reflux disease. RECOMMENDATIONS AND DISCUSSION: In this 58-year-old gentleman who presented after surgery, at this time I recommend to continue the current medications, continue symptomatic treatment. I recommend a course of bronchodilators. I would also recommend to continue the doxycycline. Repeat chest x- ray may be done to ensure that there is no pneumonic process. Otherwise, DVT prophylaxis. Will follow the patient closely with you. The patient may be asked to follow with Dr. Vazquez closely after discharge. Thank you, Dr. Lezama, for letting us participate in the care this patient. MMODL / IJN: [id number] /
[2019-01-07] MEDS: HYDROcodone/APAP 5-325MG 1 EACH TAB PO PRN (05:43)
[2019-01-07 07:22] VITALS: BP 143/87; RESP 20; TEMP 97.9
[2019-01-07] MEDS: ALBUTEROL NEBULIZED 2.5 MG/3 ML INHALATION SCH ×2 (07:41→12:01)
[2019-01-07] MEDS: traMADol 50 MG TAB PO SCH (08:22)
[2019-01-07] MEDS: PANTOPRAZOLE 40 MG TABLET PO SCH (08:22)
[2019-01-07] MEDS: MULTIVITAMINS, THERA 1 EACH TAB PO SCH (08:22)
[2019-01-07] MEDS ORDERED: HYDROcodone/APAP 7.5-325MG 1 EACH TAB PO PRN (08:41)
--- NOTE | 2019-01-07 09:57 | P.DS ---
Providers Date of admission: 01/06/19 06:57 Attending physician: Kim Lezama Consults: 01/06/19 14:30 Consult Physician Routine Consulting Provider: Keith Burleson Consult Reason/Comments: medical management Do you want consulting provider notified?: Yes Primary care physician: Edwige Vazquez Hospital Course: The patient presented on the day of admission as per their operative note. He had significant stenosis at C 4 5 and C6 7 above and below prior fusion that he had at C5 6. He was having neck pain and upper extremity radiculopathy particular to the left. He feels his left arm is making improvement today. He is swallowing better now and is tolerating his regular diet. He has been up and around. His neck pain is controlled with oral medications. Physical Exam The incision site is clean dry and intact. There is no erythema no drainage. There is no purulence no evidence of infection. His neck is soft and supple. There is no fluid collection. Abdomen soft and nontender. Chest has good excursion with deep inspiration and expiration. The patient has active and passive range of motion intact at the upper and lower extremities. There is no acute change in neurologic status. He has good strength his bilateral hands. Hospital Course Postoperative day #2 status post anterior cervical decompression with discectomy and fusion at C4 5 and C6 7 for his spinal stenosis with disc herniation and neck pain and upper extremity radiculopathy with prior C5 6 anterior cervical fusion. The patient has been making good progress postoperatively. He is having significant pain yesterday but he seems to be more comfortable today with oral medications. He was able to tolerate more diet yesterday but is able tolerate soft diet still today. They have completed the prophylactic antibiotics without any signs or symptoms of infection. The patient has been able to advance their diet, and is tolerating diet adequately. The pain was initially controlled with IV medications and is now controlled appropriately with oral medications. The patient has been able to increase their mobilization. The patient has progressed appropriately. I think they are in good stable condition for discharge today. They will be sent home with appropriate prescriptions. I answered their questions to the best of my ability in a language that they can understand and they are agreeable with the plan. They will follow up as directed in approximately 2 weeks or sooner if any problems.. Patient Condition at Discharge: Good Plan - Discharge Summary Discharge Rx Participant: Yes New Discharge Prescriptions: New Cyclobenzaprine [Flexeril] 10 mg PO HS #60 tab HYDROcodone/APAP 7.5-325MG [[place] 7.5-325] 1 tab PO Q4H PRN #42 tab PRN Reason: Pain No Action Pantoprazole Sodium [Protonix] 40 mg PO DAILY traMADol HCL [Ultram] 50 mg PO BID Multivitamins, Thera [Multivitamin (formulary)] 1 tab PO DAILY Celecoxib [CeleBREX] 200 mg PO DAILY Doxycycline Monohydrate [Monodox] 100 mg PO BID 3 Days #6 cap Albuterol Inhaler [Ventolin Hfa Inhaler] 1 - 2 puff INHALATION Q6HR PRN #1 inhaler PRN Reason: Shortness Of Breath Or Wheezing Discharge Medication List Pantoprazole Sodium [Protonix] 40 mg PO DAILY 02/02/15 [History] Multivitamins, Thera [Multivitamin (formulary)] 1 tab PO DAILY 12/29/18 [History] traMADol HCL [Ultram] 50 mg PO BID 12/29/18 [History] Celecoxib [CeleBREX] 200 mg PO DAILY 01/01/19 [History] Albuterol Inhaler [Ventolin Hfa Inhaler] 1 - 2 puff INHALATION Q6HR PRN #1 inhaler 01/02/19 [Rx] Doxycycline Monohydrate [Monodox] 100 mg PO BID 3 Days #6 cap 01/02/19 [Rx] Cyclobenzaprine [Flexeril] 10 mg PO HS #60 tab 01/07/19 [Rx] HYDROcodone/APAP 7.5-325MG [[place] 7.5-325] 1 tab PO Q4H PRN #42 tab 01/07/19 [Rx] Follow up Appointment(s)/Referral(s): Kim Lezama DO [Doctor of Osteopathic Medicine] - 01/20/19 3:30 pm Edwige Vazquez MD [Primary Care Provider] - 01/14/19 9:30 am Activity/Diet/Wound Care/Special Instructions: 1. Patient may shower with Tegaderm dressing intact. 2. Patient may remove Tegaderm dressing on Saturday and shower without a dressing at that time. 3. Patient should keep Steri-Strips intact and allow them to fall off naturally. 4. Patient should refrain from driving until at least after their first follow- up appointment in the office. 5. Patient should avoid excessive cervical rotation, flexion, extension, sidebending; avoid overhead activity; no lifting greater than 10 pounds 6. Take medications as prescribed 7. Do not soak in tub Discharge Disposition: HOME SELF-CARE
[2019-01-07] MEDS: SODIUM CHLORIDE 0.9% 1,000 ML IV SCH (12:09)
[2019-01-07] MEDS: LACTATED RINGERS 1,000 ML IV SCH (12:09)
[2019-01-07 12:12] VITALS: PULSE 80
--- NOTE | 2019-01-07 20:55 | PN ---
PROGRESS NOTE DATE OF SERVICE: 01/07/2019. This 57-year-old gentleman who was admitted with anterior decompression surgery is improving significantly. No chest pain. No palpitations. Chest x-ray showed no evidence of pneumonia. EXAM: Alert and oriented x3. Pulse is 84. Blood pressure 143/87, respirations 20. Temperature 97.9. Pulse ox 94% on room air. HEENT: Conjunctivae normal. NECK: No jugular venous distention. CARDIOVASCULAR: S1, S2 muffled. RESPIRATORY: Breath sounds diminished in the bases. Few rhonchi. No crackles. ABDOMEN soft. Nervous System: No focal deficits. Examination of the neck is status post surgery. LABS: Noted. ASSESSMENT: 1. Status post anterior cervical decompression with discectomy fusion C4-5, 5-6, 7 for severe cervical degenerative joint disease. 2. History of recent acute bronchitis. 3. History of degenerative joint disease. 4. Appendectomy. 5. History of cholecystectomy. 6. History of gastroesophageal reflux disease. RECOMMENDATIONS AND DISCUSSION: Recommend to continue current medications, symptomatic treatment. Otherwise, resume the home medications. Continue with bronchodilators and closely follow with Dr. Vazquez in the outpatient setting, as well as the rest of the recommendations per Orthopedic surgery. Further recommendations to follow. MMODL / IJN: [id number] /
== END 2019-01-07 13:55 | disposition home or self-care (01) ==
LOC: OR 11:58 → 4SSUR 15:42 → OR 01-06 06:54 → 4SSUR 01-06 06:57
PROVIDERS: ADMIT Orthopaedic Surgery Orthopaedic Surgery of the Spine; ATTEND Orthopaedic Surgery Orthopaedic Surgery of the Spine
DX: M50.121 Cervical disc disorder at C4-C5 level with radiculopathy (principal); M48.02 Spinal stenosis, cervical region; M47.22 Other spondylosis with radiculopathy, cervical region; J40 Bronchitis, not specified as acute or chronic; M65.4 Radial styloid tenosynovitis [de Quervain]; E66.9 Obesity, unspecified; Z68.35 Body mass index [BMI] 35.0-35.9, adult; H91.90 Unspecified hearing loss, unspecified ear; J30.2 Other seasonal allergic rhinitis; Z79.891 Long term (current) use of opiate analgesic; Z79.899 Other long term (current) drug therapy; Z98.1 Arthrodesis status; Z90.49 Acquired absence of other specified parts of digestive tract; Z82.69 Family history of other diseases of the musculoskeletal system and connective tissue; Z83.3 Family history of diabetes mellitus; Z81.8 Family history of other mental and behavioral disorders
CPT/HCPCS: 22551; 22552; 20930; 22845; 94640 ×4; 94760; 86900; 86901; 86850; 72020; 71045; G0378 ×2; C1713 ×2; C1762 ×2; J2250; J2710; J0690 ×2; J2001; J3010; J1170 ×3; J1100; J0330; J2704

== ENCOUNTER 2019-08-24 21:50 | Emergency (ER) | payer BC ==
[2019-08-24 22:17] VITALS: RESP 18; TEMP 97.9
[2019-08-24] MEDS ORDERED: LIDOCAINE 1% INJ 10MG/ML (20 ML MDV) SQ ONE (22:46)
[2019-08-24] MEDS ORDERED: CIPROFLOXACIN HCL 500 MG TAB PO STA (22:49)
[2019-08-24] MEDS ORDERED: ACET/COD 300 MG/30 MG STARTER PACK 6 TAB BTL PO STA (23:45)
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
[2019-08-24 23:54] VITALS: BP 146/94; PULSE 70
== END 2019-08-24 23:58 | disposition home or self-care (01) ==
LOC: EC 21:50
DX: S91.332A Puncture wound without foreign body, left foot, initial encounter (principal); K21.9 Gastro-esophageal reflux disease without esophagitis; Z79.1 Long term (current) use of non-steroidal anti-inflammatories (NSAID); Z79.899 Other long term (current) drug therapy; W26.8XXA Contact with other sharp object(s), not elsewhere classified, initial encounter
CPT/HCPCS: 99283; 10060; J2001

== ENCOUNTER → 2020-04-28 | Outpatient (CLI) | payer BC ==
--- NOTE | 2020-04-29 07:24 | US ---
EXAMINATION TYPE: US carotid duplex BILAT DATE OF EXAM: 04/28/2020 COMPARISON: NONE CLINICAL HISTORY: I65.23 Occlusion and stenosis of bilateral carotid. EXAM MEASUREMENTS: RIGHT: Peak Systolic Velocity (PSV) cm/sec ----- Right CCA: 91.9 ----- Right ICA: 55.9 ----- Right ECA: 82.1 ICA/CCA ratio: 0.6 RIGHT: End Diastole cm/sec ----- Right CCA: 22.5 ----- Right ICA: 21.8 ----- Right ECA: 13.9 LEFT: Peak Systolic Velocity (PSV) cm/sec ----- Left CCA: 83.6 ----- Left ICA: 63.0 ----- Left ECA: 79.6 ICA/CCA ratio: 0.8 LEFT: End Diastole cm/sec ----- Left CCA: 28.0 ----- Left ICA: 25.9 ----- Left ECA: 20.1 VERTEBRALS (direction of flow): Right Vertebral: Antegrade Left Vertebral: Antegrade Rhythm: Normal Patient has large thick neck, technically difficult study. Minimal atherosclerotic changes with no significant velocity increases. IMPRESSION: No evidence for hemodynamically significant stenosis. Criteria for Assigning % of Stenosis / Diameter reduction (Estimation based on the indirect measurements of the internal carotid artery velocities (ICA PSV). 1. Normal (no stenosis)=ICA PSV < 125 cm/s: ratio < 2.0: ICA EDV<40 cm/s. 2. Less than 50% stenosis=ICA PSV < 125 cm/s: ratio < 2.0: ICA EDV<40 cm/s. 3. 50 to 69% stenosis=ICA PSV of 125 to 230 cm/s: ration 2.0 ? 4.0: ICA EDV 40-100 cm/s. 4. Greater than 70% stenosis to near occlusion= ICA PSV > 230 cm/s: ratio > 4.0: ICA EDV > 100 cm/s. 5. Near occlusion= ICA PSV velocities may be low or undetectable: variable ratio and ICA EDV. 6. Total occlusion=unable to detect flow.
== END | disposition home or self-care (01) ==
LOC: RADUSWWP 16:18
PROVIDERS: ATTEND Family Medicine
DX: I65.23 Occlusion and stenosis of bilateral carotid arteries (principal)
CPT/HCPCS: 93880

== ENCOUNTER 2020-07-01 12:03 | Emergency (ER) | payer BC ==
[2020-07-01 12:18] VITALS: BP 143/86; PULSE 69; RESP 18; TEMP 98.1
[2020-07-01] MEDS ORDERED: SODIUM CHLORIDE 0.9% 1,000 ML IV STA (14:38)
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
[2020-07-01 14:48] LABS: Basophils # (A) 0.1 k/uL (0-0.2); Basophils % (A) 1 %; Eosinophils # (A) 0.2 k/uL (0-0.7); Eosinophils % (A) 4 %; HCT 47.8 % (39.0-53.0); Lymphocytes # (A) 1.2 k/uL (1.0-4.8); Lymphocytes % (A) 22 %; MCH 30.9 pg (25.0-35.0); MCHC 35.6 g/dL (31.0-37.0); MCV 86.6 fL (80.0-100.0); Mean Platelet Volume 8.1; Monocytes # (A) 0.5 k/uL (0-1.0); Monocytes % (A) 8 %; Neutrophils # (A) 3.4 k/uL (1.3-7.7); Neutrophils % (A) 63 %; Platelet Count 137 k/uL (150-450); RBC 5.52 m/uL (4.30-5.90); RDW 12.1 % (11.5-15.5); WBC 5.4 k/uL (3.8-10.6)
[2020-07-01 14:57] LABS: ALT 106 U/L (4-49); AST 66 U/L (17-59); African American GFR (CKD) >90 (>60 ml/min/1.73 sqM); Albumin 4.2 g/dL (3.5-5.0); Alkaline Phosphatase 79 U/L (38-126); Anion Gap 10 mmol/L; Blood Urea Nitrogen 19 mg/dL (9-20); Calcium 9.1 mg/dL (8.4-10.2); Carbon Dioxide 27 mmol/L (22-30); Chloride 102 mmol/L (98-107); Glucose 126 mg/dL (74-99); Non-African American GFR(CKD) 78 (>60 ml/min/1.73 sqM); Potassium 4.2 mmol/L (3.5-5.1); Sodium 139 mmol/L (137-145); Total Bilirubin 0.9 mg/dL (0.2-1.3); Total Protein 7.5 g/dL (6.3-8.2)
--- NOTE | 2020-07-01 15:07 | XR ---
EXAMINATION TYPE: XR KUB portable DATE OF EXAM: 07/01/2020 COMPARISON: NONE HISTORY: 60-year-old male bilateral flank pain, possible kidney stone. FINDINGS: Cholecystectomy clips. Tiny round calcification, one on each side in the pelvis likely phleboliths. O therwise, no definite suspicious calcification. Nonobstructive bowel gas pattern. No significant stoo l burden. Mild degenerative changes both hips. IMPRESSION: Tiny round calcifications in the pelvis likely represent phleboliths. No definite suspicious calcific ation seen radiographically. Nonobstructive bowel gas pattern.
[2020-07-01 15:13] LABS: Appearance,Urine Cloudy (Clear); Bilirubin,Urine Negative (Negative); Blood,Urine Negative (Negative); Color,Urine Dark Yellow; Glucose,Urine (UA) Negative (Negative); Ketones,Urine Negative (Negative); Leukocyte Esterase,Urine Negative (Negative); Mucus,Urine Many /hpf; Nitrite,Urine Negative (Negative); PH, Urine 5.5 (5.0-8.0); Protein,Urine 1+ (Negative); Urobilinogen,Urine <2.0 mg/dL (<2.0); WBC,Urine 4 /hpf (0-5)
== END 2020-07-01 16:05 | disposition home or self-care (01) ==
LOC: EC 12:03
DX: S39.012A Strain of muscle, fascia and tendon of lower back, initial encounter (principal); R10.9 Unspecified abdominal pain; R39.198 Other difficulties with micturition; K21.9 Gastro-esophageal reflux disease without esophagitis; M19.90 Unspecified osteoarthritis, unspecified site; Z90.49 Acquired absence of other specified parts of digestive tract; X58.XXXA Exposure to other specified factors, initial encounter
CPT/HCPCS: 36415; 74018; 80053; 81001; 85025; 96360; 99284

== ENCOUNTER 2020-07-25 08:11 | Inpatient (IN) | payer BC ==
[2020-07-25] MEDS ORDERED: KETOROLAC 15 MG/ML 1 ML VIAL IVP STA (08:42)
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
[2020-07-25 09:04] LABS: Basophils % (A) 1 %; Eosinophils # (A) 0.4 k/uL (0-0.7); Eosinophils % (A) 5 %; HCT 45.8 % (39.0-53.0); HGB 16.2 gm/dL (13.0-17.5); Lymphocytes # (A) 1.4 k/uL (1.0-4.8); Lymphocytes % (A) 20 %; MCH 30.8 pg (25.0-35.0); MCHC 35.5 g/dL (31.0-37.0); MCV 86.7 fL (80.0-100.0); Mean Platelet Volume 7.8; Monocytes # (A) 0.5 k/uL (0-1.0); Monocytes % (A) 7 %; Neutrophils # (A) 4.8 k/uL (1.3-7.7); Neutrophils % (A) 65 %; Platelet Count 149 k/uL (150-450); RBC 5.28 m/uL (4.30-5.90); RDW 12.9 % (11.5-15.5); WBC 7.3 k/uL (3.8-10.6)
[2020-07-25 09:12] LABS: Glucose 195 mg/dL (74-99); Total Protein 7.1 g/dL (6.3-8.2)
[2020-07-25 09:13] LABS: ALT 132 U/L (4-49); AST 54 U/L (17-59); African American GFR (CKD) >90 (>60 ml/min/1.73 sqM); Albumin 4.1 g/dL (3.5-5.0); Alkaline Phosphatase 77 U/L (38-126); Anion Gap 11 mmol/L; Blood Urea Nitrogen 18 mg/dL (9-20); Calcium 9.3 mg/dL (8.4-10.2); Carbon Dioxide 23 mmol/L (22-30); Chloride 103 mmol/L (98-107); Creatine Kinase 128 U/L (55-170); Lipase 76 U/L (23-300); Magnesium 1.8 mg/dL (1.6-2.3); Non-African American GFR(CKD) 87 (>60 ml/min/1.73 sqM); Potassium 4.4 mmol/L (3.5-5.1); Sodium 137 mmol/L (137-145); Total Bilirubin 1.3 mg/dL (0.2-1.3)
--- NOTE | 2020-07-25 09:17 | XR ---
EXAMINATION TYPE: XR chest 2V DATE OF EXAM: 07/25/2020 And maxillary L area COMPARISON: 01/06/2019 HISTORY: Shortness of breath TECHNIQUE: Frontal and lateral views of the chest are obtained. FINDINGS: There is a large left-sided pneumothorax estimated estimated and 80%. No evidence for mediastinal zoey ft. The right lung appears clear. No evidence for infiltrate. No evidence for atelectasis. Heart size is stable. Mediastinal structures are stable and grossly unremarkable. No evidence for hilar prominence. Degenerative changes dorsal spine. IMPRESSION: 1. Large left-sided pneumothorax. Comment: The ER physician was informed of the aforementioned findings at the time of interpretation.
[2020-07-25] MEDS ORDERED: LIDOCAINE 1% INJ 10MG/ML (20 ML MDV) SQ ONE (09:27)
[2020-07-25 09:31] LABS: D-Dimer 0.45 mg/L FEU (<0.60); Partial Thromboplastin Time 24.7 sec (22.0-30.0); Prothrombin Time 10.4 sec (9.0-12.0)
[2020-07-25] MEDS ORDERED: HYDROmorphone 1 MG/ML 1 ML SYRINGE IVP STA (10:03)
[2020-07-25] MEDS ORDERED: LORazepam 2 MG/ML INJ IV STA (10:03)
--- NOTE | 2020-07-25 10:32 | XR ---
EXAMINATION TYPE: XR chest 1V portable DATE OF EXAM: 07/25/2020 HISTORY: Follow-up pneumothorax COMPARISON: None. TECHNIQUE: Single view of the chest is submitted. FINDINGS: Left-sided chest catheter is in place. There is reexpansion of the left lung. No sizable pneumothorax identified. Patchy infiltrate left perihilar region may reflect pneumonia. Infiltrate of other etiology not exclu ded. Consider CT scan. The heart is stable. Hilar and mediastinal structures are within normal limits. Degenerative changes are seen of the dorsal spine. IMPRESSION: 1.Left-sided chest catheter is in place. There is reexpansion of the left lung. No sizable pneumothor ax identified. 2.Patchy infiltrate left perihilar region may reflect pneumonia. Infiltrate of other etiology not exc luded. Consider CT scan.
[2020-07-25] MEDS ORDERED: ACETAMINOPHEN TAB 325 MG TAB PO PRN (11:19)
[2020-07-25] MEDS ORDERED: NALOXONE 0.4 MG/ML 1 ML VIAL IV PRN ×2 (11:19→11:38)
[2020-07-25] MEDS ORDERED: MONTELUKAST 10 MG TAB PO PRN (11:22)
[2020-07-25] MEDS: HYDROcodone/APAP 5-325MG 1 EACH TAB PO PRN ×2 (13:23→19:35)
[2020-07-25] MEDS: SODIUM CHLORIDE 0.9% 1,000 ML IV SCH (14:43)
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
[2020-07-25] MEDS: PANTOPRAZOLE 40 MG TABLET PO SCH (20:32)
[2020-07-25] MEDS: SYMBICORT 80-4.5 MCG INHALER INHALATION PRN (21:06)
[2020-07-26] MEDS: HYDROcodone/APAP 5-325MG 1 EACH TAB PO PRN ×2 (01:42→07:50)
[2020-07-26] MEDS: SODIUM CHLORIDE 0.9% 1,000 ML IV SCH (07:52)
[2020-07-26] MEDS: SYMBICORT 80-4.5 MCG INHALER INHALATION PRN (08:38)
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
--- NOTE | 2020-07-26 09:24 | CT ---
EXAMINATION TYPE: CT chest wo con DATE OF EXAM: 07/26/2020 COMPARISON: None HISTORY: Pneumothorax, assess for blebs CT DLP: 728.[address] of the chest was performed with lung and mediastinal window settings submitted. The la ck of contrast limits evaluation of the vascular, mediastinal and parenchymal structures including th e upper abdomen. LUNGS: The tip of the left pleural catheter resides within the chest wall. There is a small residual left-sided pneumothorax estimated at less than 10%. No blebs are identified. There are basilar atelec tatic changes as well as small left-sided pleural effusion. MEDIASTINUM/MINH: Thoracic aorta is of normal caliber with limited evaluation given lack of contrast . The heart is not enlarged. No evidence for mediastinal mass. No lymph nodes greater than 1cm. UPPER ABDOMEN: No significant abnormality is seen. OTHER: No significant other abnormality. IMPRESSION: 1. Small residual left-sided pneumothorax estimated at less than 10%. No bleb formation seen. 2. Left pleural catheter resides within the chest wall.
[2020-07-26 10:05] LABS: Basophils # (A) 0.04 X 10*3/uL (0.00-0.10); Basophils % (A) 0.6 %; Eosinophils # (A) 0.57 X 10*3/uL (0.04-0.35); Eosinophils % (A) 8.4 %; HCT 46.3 % (39.6-50.0); HGB 15.8 g/dL (13.0-17.0); Lymphocytes # (A) 1.82 X 10*3/uL (0.90-5.00); Lymphocytes % (A) 26.8 %; MCH 29.3 pg (27.0-32.0); MCHC 34.1 g/dL (32.0-37.0); MCV 85.9 fL (80.0-97.0); Mean Platelet Volume 11.3 fL (9.5-12.2); Monocytes # (A) 0.65 X 10*3/uL (0.20-1.00); Monocytes % (A) 9.6 %; Neutrophils # (A) 3.66 X 10*3/uL (1.80-7.70); Neutrophils % (A) 53.9 %; Platelet Count 139 X 10*3/uL (140-440); RBC 5.39 X 10*6/uL (4.40-5.60); RDW 12.3 % (11.5-14.5); WBC 6.79 X 10*3/uL (4.50-10.00)
[2020-07-26 10:45] LABS: African American GFR (CKD) 95.1 (60.0-200.0); Anion Gap 7.7 mmol/L (4.00-12.00); Calcium 8.9 mg/dL (8.7-10.3); Carbon Dioxide 27.3 mmol/L (21.6-31.8); Magnesium 1.7 mg/dL (1.5-2.4); Potassium 4.5 mmol/L (3.5-5.5)
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
[2020-07-26] MEDS: KETOROLAC 15 MG/ML 1 ML VIAL IVP SCH ×3 (11:37→23:46)
--- NOTE | 2020-07-26 16:29 | P.PN ---
Subjective Progress Note Date: 07/26/20 No new complaints today. On room air, ambulating to bathroom and back without dypsnea. Has soreness of his upper arms. Objective - Vital Signs Vital signs: Vital Signs Temp 97.3 F L 07/26/20 07:53 Pulse 69 07/26/20 14:02 Resp 18 07/26/20 14:02 BP 126/90 07/26/20 14:02 Pulse Ox 96 07/26/20 14:02 Intake & Output 07/25/20 07/26/20 07/26/20 18:59 06:59 18:59 Output Total 375 Balance -375 Weight 108.862 kg 108.862 kg Output: Urine 375 - Exam Gen: awake, alert HEENT: normocephalic, atraumatic, good hearing acuity, moist mucous membranes Resp: good air exchange, breathing comfortably with no accessory muscle use, clear to auscultation bilaterally without wheezes, left side has appropriate lungs sounds with good chest expansion which is symmetric CVS: good distal perfusion x 4, regular rate and rhythm without murmurs GI: soft, NTTP, ND : no SPT, no CVAT, link catheter not present MSK: no pitting edema, no clubbing Neuro: non-focal, moving all extremities Psych: cooperative, euthymic mood - Labs CBC & Chem 7: 07/26/20 04:45 07/26/20 04:45 Labs: Abnormal Lab Results - Last 24 Hours (Table) 07/26/20 Range/Units 04:45 Plt Count 139 L (140-440) X 10*3/uL Immature Gran # 0.05 H (0.00-0.04) X 10*3/uL Eosinophils # 0.57 H (0.04-0.35) X 10*3/uL Assessment and Plan Assessment: Acute hypoxemic respiratory failure Spontaneous Pneumothorax -Oxygen when necessary with the goal O2 saturation 96-100% -Pulmonary consultation, appreciate recs -CT surgery, appreciate recs -Daily chest x-ray Mild intermittent asthma -DuoNeb when necessary Recent right shoulder arthroplasty -Tylenol when necessary Patient is a full code Heparin 3 times a day
[2020-07-26] MEDS: PANTOPRAZOLE 40 MG TABLET PO SCH (20:03)
[2020-07-27] MEDS: KETOROLAC 15 MG/ML 1 ML VIAL IVP SCH (05:31)
--- NOTE | 2020-07-27 07:26 | XR ---
EXAMINATION TYPE: XR chest 2V DATE OF EXAM: 07/27/2020 COMPARISON: 07/25/2020 HISTORY: Shortness of breath TECHNIQUE: Frontal and lateral views of the chest are obtained. FINDINGS: Left pleural catheter has been removed. No sizable left-sided pneumothorax identified. Linear basilar atelectasis. Improved aeration left lower lobe. Heart size is stable. Mediastinal structures are stable and grossly unremarkable. No evidence for hilar prominence. Degenerative changes dorsal spine. IMPRESSION: 1. Left pleural catheter has been removed. No sizable left-sided pneumothorax identified. Linear basi lar atelectasis. Improved aeration left lower lobe.
[2020-07-27 08:17] VITALS: BP 129/81; PULSE 63; RESP 18; TEMP 97.8
--- NOTE | 2020-07-27 08:24 | P.PN ---
Subjective Progress Note Date: 07/27/20 Principal diagnosis: Spontaneous left-sided pneumothorax, status post thoravent placement by the emergency room physicians, chest pain with shortness of breath on admission secondary to pneumothorax. Previous medical history of recent Covid diagnosis 06/24/2020, current test negative, mild asthma, chronic pain, never smoker, recent right-sided arthroscopic shoulder surgery The patient is currently sitting up in bed in no acute distress. States pain is well controlled on current medication regimen, denies shortness of breath. Left-sided thoravent was discontinued last night after CT read. Chest x-ray reviewed this morning, stable. Patient has been ambulatory without difficulty. No new concerns. Objective - Vital Signs Vital signs: Vital Signs Temp 97.8 F 07/27/20 08:00 Pulse 63 07/27/20 08:00 Resp 18 07/27/20 08:00 BP 129/81 07/27/20 08:00 Pulse Ox 97 07/27/20 08:00 Intake & Output 07/26/20 07/27/20 07/27/20 18:59 06:59 18:59 Intake Total 1080 Output Total 375 Balance 705 Weight 108.862 kg Intake: Oral 1080 Output: Urine 375 Other: # Voids 2 2 - Exam CONSTITUTIONAL: Appears comfortable, cooperative, no acute distress RESPIRATORY: Lungs sounds diminished bilaterally. Respirations even, nonlabored. Currently on room air with oxygen saturation 92-96%. Able to a chieve 2000 mL on incentive spirometry. Strong cough. CARDIOVASCULAR: S1, S2 present. Regular rate and rhythm. Palpable peripheral pulses bilaterally. No edema present. No calf pain or tenderness noted. GASTROINTESTINAL: Abdomen soft, nontender, nondistended. Active bowel sounds present 4 quadrants. Tolerating diet. GENITOURINARY: Continues to void clear, yellow urine INTEGUMENTARY: Skin is warm and dry with evidence of good perfusion. Left former thoravent site covered with dry intact dressing. NEUROLOGIC: Cranial nerves II through XII intact MUSKULOSKELETAL: Able to move all extremities, strength equal bilaterally, gait normal, right sling in place PSYCHIATRIC: Alert and oriented to person place and time, appropriate affect, intact judgment and insight - Allied health notes Allied health notes reviewed: nursing - Labs CBC & Chem 7: 07/26/20 04:45 07/26/20 04:45 Labs: Abnormal Lab Results - Last 24 Hours (Table) 07/26/20 Range/Units 04:45 Plt Count 139 L (140-440) X 10*3/uL Immature Gran # 0.05 H (0.00-0.04) X 10*3/uL Eosinophils # 0.57 H (0.04-0.35) X 10*3/uL - Imaging and Cardiology Chest x-ray: report reviewed, image reviewed Assessment and Plan Assessment: 1. Spontaneous left-sided pneumothorax, status post thoravent placement by the emergency room physicians 2. Chest pain with shortness of breath, secondary to above 3. Recent Covid diagnosis 06/24/2020, current test negative 4. History of mild asthma 5. Chronic pain 6. Never smoker 7. Recent right-sided arthroscopic shoulder surgery Plan: 1. Chest x-ray reviewed, discussed the case with Dr. Aguilar. No surgical intervention warranted 2. Patient may be discharged home from cardiothoracic surgery standpoint 3. Our contact information will be given to the patient should he have any questions or concerns 4. Patient to leave dressing in place until tomorrow, then may remove and shower daily. This was discussed with the patient 5. Incentive spirometry encouraged 6. Pain control with current medication regimen 7. Medical measures with other comorbidities per primary care service, please call us with any further questions Time with Patient: Greater than 30
--- NOTE | 2020-07-28 23:34 | P.DS ---
Providers Date of admission: 07/25/20 11:39 Expected date of discharge: 07/27/20 Attending physician: Carlitos Herrera Consults: 07/25/20 11:21 Consult Physician Routine Consulting Provider: Johnson Webster Consult Reason/Comments: PTX, s/p chest tube Do you want consulting provider notified?: Yes 07/26/20 07:51 Consult Physician Routine Consulting Provider: Pedro Aguilar Consult Reason/Comments: left pneumothorax Do you want consulting provider notified?: Yes Primary care physician: Pee Antonio MD Hospital Course: Presenting complaint: Left-sided chest pain./Shortness of breath Hospital course: This is a patient with right shoulder surgery 3 days prior to presentation presented with 1 day of sharp left-sided chest pain with some shortness of breath. Patient is found over pneumothorax. Thora-ventin the ER. Patient was seen by cardiothoracic team. Patient recently had COVID 19 in May. That has recovered. Thora-vent was removed. Patient breathing stable. Cleared by pulmonary and cardiothoracic surgery. Check stat x-ray from today was negative for pneumothorax Consultation: Dr. Webster from pulmonary Dr. Aguilar from cardiothoracic surgery On examination: VITAL SIGNS: [97.8, 63, 18, 129 with 81, 97% room air] GENERAL APPEARANCE: Sitting up in a chair, comfortable. HEENT: Normal external appearance of nose and ear. Oral cavity normal EYES: Pupils equal. Conjunctiva normal. NECK: JVD not raised. Mass not palpable. RESPIRATORY: Respiratory effort normal. Lungs clear to auscultation. CARDIOVASCULAR: First and second sounds normal. No edema. ABDOMEN: Soft. Liver and spleen not palpable. No tenderness. No mass palpable. PSYCHIATRY: Alert and oriented x3. Mood and affect normal. Investigations: White count 6.7 hemoglobin 15.8 platelets 139 potassium 4.5 creatinine 1.0 Influenza type A, type B, RSV, COVID 19 PCR: Not detected CT chest: Small left pneumothorax. No purulent blood Assessment: -Spontaneous left-sided pneumothorax. Treated with the Thora-vent. Removed. -GERD -Primary osteoarthritis multiple joints -Moderate persistent asthma. Disposition: home Patient Condition at Discharge: Stable Plan - Discharge Summary Discharge Rx Participant: No New Discharge Prescriptions: Continue HYDROcodone/APAP 10-325MG [[facility] 10-325] 1 tab PO Q6HR PRN PRN Reason: Pain Budesonide/Formoterol Fumarate [Symbicort 80-4.5 Mcg Inhaler] 2 puff INHALATION RT-BID PRN PRN Reason: Shortness Of Breath Montelukast [Singulair] 10 mg PO HS PRN PRN Reason: ASTHMA/ALLERGY SYMPTOMS Pantoprazole Sodium [Protonix] 40 mg PO HS Discharge Medication List Budesonide/Formoterol Fumarate [Symbicort 80-4.5 Mcg Inhaler] 2 puff INHALATION RT-BID PRN 07/01/20 [History] HYDROcodone/APAP 10-325MG [[facility] 10-325] 1 tab PO Q6HR PRN 07/25/20 [History] Montelukast [Singulair] 10 mg PO HS PRN 07/25/20 [History] Pantoprazole Sodium [Protonix] 40 mg PO HS 07/25/20 [History] Follow up Appointment(s)/Referral(s): Lita Stafford NPC [Nurse Practitioner] - As Needed (Please call for any questions or concerns. Cell phone number [phone]) Pee Antonio MD [Primary Care Provider] - 08/01/20 2:45 pm Patient Instructions/Handouts: Spontaneous Pneumothorax (DC) Activity/Diet/Wound Care/Special Instructions: Leave thoravent dressing in place until tomorrow, 07/28/2020. Then may remove and shower daily Avoid heavy lifting or straining for 2 weeks Discharge Disposition: HOME SELF-CARE
== END 2020-07-27 11:33 | disposition home or self-care (01) | DRG 199 ==
LOC: EC 08:11 → 4SSUR 11:39
PROVIDERS: ADMIT Hospitalist; ATTEND Hospitalist
PROC: 0W9B30Z Drainage of Left Pleural Cavity with Drainage Device, Percutaneous Approach (ICD-10-PCS; principal; 2020-07-25)
DX: J93.83 Other pneumothorax (principal); J96.01 Acute respiratory failure with hypoxia; J90 Pleural effusion, not elsewhere classified; K21.9 Gastro-esophageal reflux disease without esophagitis; Z20.822 Contact with and (suspected) exposure to COVID-19; J45.40 Moderate persistent asthma, uncomplicated; G89.29 Other chronic pain; M54.2 Cervicalgia; M54.9 Dorsalgia, unspecified; M89.49 Other hypertrophic osteoarthropathy, multiple sites; Z79.51 Long term (current) use of inhaled steroids; Z79.899 Other long term (current) drug therapy; Z87.81 Personal history of (healed) traumatic fracture; Z96.611 Presence of right artificial shoulder joint; Z90.49 Acquired absence of other specified parts of digestive tract; Z87.19 Personal history of other diseases of the digestive system; Z90.89 Acquired absence of other organs; Z98.1 Arthrodesis status; Z98.52 Vasectomy status; Z86.16 Personal history of COVID-19; Z86.69 Personal history of other diseases of the nervous system and sense organs; Z87.01 Personal history of pneumonia (recurrent); Z98.890 Other specified postprocedural states; Z81.8 Family history of other mental and behavioral disorders; Z83.3 Family history of diabetes mellitus; Z82.49 Family history of ischemic heart disease and other diseases of the circulatory system; Z80.3 Family history of malignant neoplasm of breast
CPT/HCPCS: 32551; 36415; 71045; 71046; 71250; 80048; 80053; 82550; 83690; 83735; 83880; 84484; 85025; 85379; 85610; 85730; 87636; 93005; 94640; 96372; 96374; 96375; 99285

== ENCOUNTER 2020-12-15 09:31 | Emergency (ER) | payer BC, OTHER ==
[2020-12-15 09:44] VITALS: RESP 18; TEMP 98.8
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
[2020-12-15] MEDS ORDERED: IBUPROFEN 600 MG TAB PO STA (10:55)
--- NOTE | 2020-12-15 11:34 | XR ---
EXAMINATION TYPE: XR lumbar spine 2 or 3V DATE OF EXAM: 12/15/2020 Comparison: None Clinical History: 60-year-old male pain Findings: 5 lumbar type vertebral bodies. Mild degenerative disc disease throughout with endplate spondylosis. Vertebral body heights are preserved and alignment is maintained. Impression: Mild multilevel degenerative disc disease. No vertebral compression collapse or malalignment.
[2020-12-15] MEDS ORDERED: ACET/COD 300 MG/30 MG STARTER PACK 6 TAB BTL PO STA (11:39)
[2020-12-15 11:53] VITALS: BP 133/86; PULSE 72
== END 2020-12-15 11:48 | disposition home or self-care (01) ==
LOC: EC 09:31
DX: M54.2 Cervicalgia (principal); M54.9 Dorsalgia, unspecified; K21.9 Gastro-esophageal reflux disease without esophagitis; M19.90 Unspecified osteoarthritis, unspecified site; Z79.899 Other long term (current) drug therapy; Z79.1 Long term (current) use of non-steroidal anti-inflammatories (NSAID); V49.40XA Driver injured in collision with unspecified motor vehicles in traffic accident, initial encounter; Y92.410 Unspecified street and highway as the place of occurrence of the external cause
CPT/HCPCS: 70450; 72100; 72125; 99284

== ENCOUNTER → 2021-04-03 | Outpatient (CLI) | payer BC ==
[2021-04-03 12:40] VITALS: BP 158/86; PULSE 78; RESP 18; TEMP 98.5
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
== END | disposition home or self-care (01) ==
LOC: PNWHC3 11:02
PROVIDERS: ATTEND Physician Assistant Medical
DX: M47.892 Other spondylosis, cervical region (principal); M50.30 Other cervical disc degeneration, unspecified cervical region; M48.02 Spinal stenosis, cervical region
CPT/HCPCS: 99211

== ENCOUNTER → 2021-05-18 | Day surgery (SDC) | payer BC ==
[2021-05-17 13:01] VITALS: BMI 34.0
[~2021-05-18] MED LIST changes: -BACITRACIN 50,000 UNIT, POLYMYXIN B 500,000 UNIT in SODIUM CHLORIDE 0.9% IRRIGATIO 1,00... IRRIGATION ONE; -DEXAMETHASONE SOD PHOSPHATE 10 MG/ML 1 ML VIAL IV ONE; +LACTATED RINGERS 1,000 ML IV SCH; -LIDOCAINE 1% 20 ML VIAL (10MG/ML) FOR IV START INTRADERMA PRN; -MIDAZOLAM 2 MG/2 ML VIAL IV PRN; -fentaNYL (PF) 50 MCG/ML 2 ML AMP IV PRN
[2021-05-18 10:03] VITALS: BP 129/88; PULSE 76; RESP 16; TEMP 98
--- NOTE | 2021-05-18 10:29 | P.PN ---
Subjective Progress Note Date: 05/18/21 This is 61 years old male, with a chronic history of severe neck pain is diagnosed with cervical degenerative disc disease, cervical spondylosis with cervical facet arthropathy, cervical foraminal stenosis, patient had cervical fusion surgery done a few years ago(C4 to C7), he is scheduled to have diagnost ic medial branch block cervical area at C5, C6 ,C7 , patient reported that he had severe neck pain and occasional headache, and he had some radicular symptoms to the upper extremity, he denies any motor or sensory deficit, denies any fever or night sweats Objective - Vital Signs Vital signs: Vital Signs Temp 98.0 F 05/18/21 09:59 Pulse 76 05/18/21 09:59 Resp 16 05/18/21 09:59 BP 129/88 05/18/21 09:59 Pulse Ox 97 05/18/21 09:59 Intake & Output 05/17/21 05/18/21 05/18/21 18:59 06:59 18:59 Weight 104.326 kg 108 kg - Exam Physical Examinations : -Constitutiona : Cooperative , not in acute distress . -HEENT : nech : supple , no Lymphadenopathy , normal thyroid size . : eyes : no ptosis , no icterus, no photophobia . - neurologic : Cranial nerve II to XII intact , no focal neurological deffecit . -psychatric : alert , oriented X 3 , appropriate affect , intact judgment and insight . -Lymphatic : no Lymphadenopathy . - musculoskeltal : Cervical Spine motor stregnth in the deltoid and biceps, normal right side , normal Left side motor stregnth biceps and the wrist extensors normal right side ,normal left side . motor stregnth in the triceps muscle . normal Right side , normal Left side deep tendon reflexes normal at the biceps , normal at Brachioradialis , normal at triceps. cervical facet loading test: Positive Bilaterally Lumber spine moter stegnth lower extremities ,thigh and legs 5/5 Right side , 5/5 Left side Assessment and Plan Plan: Assessment and plan=1-cervical degenerative disc disease. 2-cervical spondylosis with cervical facet arthropathy. 3-cervical foraminal stenosis. 4-history of cervical fusion surgery at C4, C5, C6, C7 Because patient had fusion at the levels mentioned above, he would benefit from diagnostic medial branch block at C2 ,C3 ,C4 Bilaterally and Possible RFA Time with Patient: Less than 30
== END ==
LOC: ORPAIN 09:29
PROVIDERS: ATTEND Specialist
DX: M47.812 Spondylosis without myelopathy or radiculopathy, cervical region (principal); M50.30 Other cervical disc degeneration, unspecified cervical region; M48.02 Spinal stenosis, cervical region; Z53.8 Procedure and treatment not carried out for other reasons

== ENCOUNTER 2022-06-11 09:45 | Emergency (ER) | payer BC ==
[2022-06-11] MEDS ORDERED: VANCOMYCIN 1,000 MG in SODIUM CHLORIDE 0.9% 250 ML IVPB STA (10:18)
[2022-06-11] MEDS ORDERED: SODIUM CHLORIDE 0.9% 1,000 ML IV ONE (10:19)
[2022-06-11] MEDS ORDERED: VANCOMYCIN 1,750 MG in SODIUM CHLORIDE 0.9% 500 ML 500 ML IVPB STA (10:24)
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
[2022-06-11] MEDS ORDERED: VANCOMYCIN IV PER PHARMACY 1 EACH MISC MISCELLANE PRN (10:25)
[2022-06-11 11:04] LABS: Basophils # (A) 0.1 k/uL (0-0.2); Basophils % (A) 1 %; Eosinophils # (A) 0.5 k/uL (0-0.7); Eosinophils % (A) 9 %; HCT 48.6 % (39.0-53.0); HGB 16.4 gm/dL (13.0-17.5); Lymphocytes % (A) 17 %; MCH 29.7 pg (25.0-35.0); MCHC 33.8 g/dL (31.0-37.0); MCV 87.9 fL (80.0-100.0); Monocytes # (A) 0.3 k/uL (0-1.0); Monocytes % (A) 5 %; Neutrophils # (A) 3.6 k/uL (1.3-7.7); Neutrophils % (A) 67 %; Platelet Count 225 k/uL (150-450); RBC 5.53 m/uL (4.30-5.90); RDW 12.5 % (11.5-15.5); WBC 5.5 k/uL (3.8-10.6)
[2022-06-11 11:12] LABS: Albumin 3.9 g/dL (3.5-5.0); Calcium 9.1 mg/dL (8.4-10.2); Potassium 4.4 mmol/L (3.5-5.1); Total Bilirubin 0.8 mg/dL (0.2-1.3); Total Protein 6.7 g/dL (6.3-8.2)
[2022-06-11 11:14] LABS: Partial Thromboplastin Time 24.2 sec (22.0-30.0); Prothrombin Time 10.5 sec (9.0-12.0)
--- NOTE | 2022-06-11 11:50 | CT ---
EXAMINATION TYPE: CT cervical spine wo con CT DLP: 807.1 mGycm, Automated exposure control for dose reduction was used. DATE OF EXAM: 06/11/2022 11:34 AM COMPARISON: 12/15/2020. CLINICAL INDICATION:Male, 62 years old with history of post surgical, Post op fusion 10 days ago, wou nd opened up today TECHNIQUE: Axial CT images from the skull base to the inferior aspect of T2 we obtained without intra venous contrast. Coronal and sagittal reformatted images were also reviewed. FINDINGS: Fracture: None. Osseous structures: Postsurgical changes with hardware in place. Vertebral alignment: Alignment within normal limits. Spinal canal/Neural Foramina: No evidence of significant spinal canal narrowing. No evidence for sign ificant neural foraminal stenosis. Neck soft tissues: There is soft tissue defect along the posterior neck extending to the spine. No or ganizing fluid collection visualized. Other: The airway is patent. There is large left pneumothorax visualized. IMPRESSION: 1. Large left pneumothorax. 2. Dehiscence of the posterior upper back. No organizing fluid collection. 3. Postsurgical changes to the neck with hardware in appropriate position. Findings communicated to Artem Almeida 06/11/2022 11:[address] Johnson Swanson.
[2022-06-11] MEDS ORDERED: KETAMINE HCL IN 0.9 % NACL 50 MG/5 ML SYRINGE IV ONE (12:15)
--- NOTE | 2022-06-11 12:15 | XR ---
EXAMINATION TYPE: XR chest 2V DATE OF EXAM: 06/11/2022 12:08 PM COMPARISON: CT C-spine same day. TECHNIQUE: XR chest 2V Frontal and lateral views of the chest. CLINICAL INDICATION:Male, 62 years old with history of r/out pneumothorax; FINDINGS: Lungs/Pleura: There is a large left pneumothorax. The right lung is without evidence of pneumothorax. No right focal consolidation, pneumothorax or pleural effusion. Pulmonary vascularity: Unremarkable. Heart/mediastinum: Cardiomediastinal silhouette is unremarkable. Musculoskeletal: No acute osseous pathology. There is fixation hardware in the lower cervical spine. IMPRESSION: Large left pneumothorax as seen on CT cervical spine same day. Ordering provider at [facility] was notified o n CT examination.
[2022-06-11] MEDS ORDERED: LIDOCAINE 1% INJ 10MG/ML (10 ML MDV) SQ STA (12:16)
[2022-06-11] MEDS ORDERED: MORPHINE SULFATE 4 MG/ML SYRINGE IVP STA (13:26)
--- NOTE | 2022-06-11 13:34 | XR ---
EXAMINATION TYPE: XR chest 1V confirm line [facility] DATE OF EXAM: 06/11/2022 COMPARISON: 06/11/2022 HISTORY: Thoracotomy and placement TECHNIQUE: Single frontal view of the chest is obtained. FINDINGS: Left-sided chest tube seen with interval near-complete resolution of pneumothorax. Patchy bilateral atelectasis or infiltrate. Limited inspiration. Postsurgical change overlying the cervical spine. Heart size stable. Surgical clips right upper quadrant. IMPRESSION: 1. Near complete resolution of left-sided pneumothorax with patchy bilateral areas of atelectasis or infiltrate.
[2022-06-11 13:54] VITALS: RESP 18; TEMP 98.3
[2022-06-11 13:57] VITALS: BP 137/68; PULSE 73
== END 2022-06-11 13:49 | disposition other institution (70) ==
LOC: EC 09:45
DX: T81.31XA Disruption of external operation (surgical) wound, not elsewhere classified, initial encounter (principal); J45.909 Unspecified asthma, uncomplicated; K21.9 Gastro-esophageal reflux disease without esophagitis; F12.90 Cannabis use, unspecified, uncomplicated; Z79.899 Other long term (current) drug therapy; Z86.16 Personal history of COVID-19
CPT/HCPCS: 99285; 96365; 96366; 96375 ×2; 32551; 99152; 36415; 86900; 86901; 80053; 85025; 85610; 85730; 86850; 87040; 71046; 72125; J3370; J2270; J0690; J2001

== ENCOUNTER → 2022-12-10 | Outpatient (CLI) | payer BC ==
--- NOTE | 2022-12-11 10:15 | CT ---
EXAMINATION TYPE: CT chest w con DATE OF EXAM: 12/10/2022 COMPARISON: 07/26/2020 HISTORY: Solitary pulmonary nodules and thoracic aortic aneurysm. CT DLP: 565.6 mGycm Automated exposure control for dose reduction was used. TECHNIQUE: CT scan of the chest is performed with IV Contrast, patient injected with 100 ml mL of Isovue 300. M IP Images are created on CT scanner and reviewed. 3D reconstructed images are created on an [employer] workstation and reviewed. FINDINGS: LUNGS: The lungs are grossly clear, there is no concerning parenchymal consolidation identified. Th ere is no pleural effusion or pneumothorax seen. The tracheobronchial tree is patent. There are multiple less than 5 mm subpleural nodules which have a benign appearance. Largest is seen on axial image 23 in the right upper lobe measuring 3 mm. MEDIASTINUM: There are no greater than 1 cm hilar or mediastinal lymph nodes. No pericardial effusi on is seen. Thoracic aorta measures 3.9 cm in the ascending aorta. OTHER: Multilevel hypertrophic and degenerative changes of the spine. There is enlarged measuring 25 cm and diffusely low in attenuation correlate for hepatic steatosis. Postcholecystectomy changes not ed. A previous surgery involving the cervical spine. Small hiatal hernia. IMPRESSION: 1. Maximal dimension of the descending aorta measures 3.9 cm on the today's exam compatible with bord jay aneurysm. 2. There are multiple sub-5 mm micronodules largest in the right upper lobe measuring approximately 3 mm stable from prior exam. Recommend 12 month follow up screening CT chest to confirm stability. 3. Hepatomegaly and hepatic steatosis correlate for underlying hepatocellular disease.
== END | disposition home or self-care (01) ==
LOC: RADCTMAIN 17:59
PROVIDERS: ATTEND Internal Medicine Critical Care Medicine
DX: R91.8 Other nonspecific abnormal finding of lung field (principal); K76.0 Fatty (change of) liver, not elsewhere classified; R16.0 Hepatomegaly, not elsewhere classified
CPT/HCPCS: 71260; Q9967

== ENCOUNTER → 2022-12-18 | Outpatient (CLI) | payer BC ==
[2022-12-18 20:41] LABS: Basophils # (A) 0.06 X 10*3/uL (0.00-0.10); Eosinophils # (A) 0.47 X 10*3/uL (0.04-0.35); Eosinophils % (A) 7.6 %; HCT 47.9 % (39.6-50.0); HGB 16.5 d/dL (13.0-17.0); Lymphocytes # (A) 2.12 X 10*3/uL (0.90-5.00); Lymphocytes % (A) 34.5 %; MCHC 34.4 d/dL (32.0-37.0); MCV 87.1 FL (80.0-97.0); Mean Platelet Volume 12.1 FL (9.5-12.2); Monocytes # (A) 0.65 X 10*3/uL (0.20-1.00); Monocytes % (A) 10.6 %; NRBC Per 100 WBC 0 X 10*3/uL (0.00-0.01); Neutrophils # (A) 2.84 X 10*3/uL (1.80-7.70); Neutrophils % (A) 46.1 %; Platelet Count 187 X 10*3/uL (140-440); RDW 12.3 % (11.5-14.5); WBC 6.15 X 10*3/uL (4.50-10.00)
[2022-12-18 21:35] LABS: % Iron Saturation 18.56 (15.00-50.00); ALT 134 U/L (10-49); AST 43 U/L (14-35); Albumin 4.7 d/dL (3.8-4.9); Albumin/Globulin Ratio 1.96 Ratio (1.60-3.17); Alkaline Phosphatase 76 U/L (41-126); Blood Urea Nitrogen 18.6 mg/dL (9.0-27.0); Calcium 9.6 mg/dL (8.7-10.3); Carbon Dioxide 22.5 mmol/L (21.6-31.8); Chloride 106 mmol/L (96-109); Globulin 2.4 d/dL (1.6-3.3); Glucose 109 mg/dL (70-110); Iron 67 UG/DL (65-175); Potassium 4.3 mmol/L (3.5-5.5); Sodium 140 mmol/L (135-145); Total Bilirubin 0.9 mg/dL (0.3-1.2); Total Iron Binding Capacity 361 UG/DL (228-460); Total Protein 7.1 d/dL (6.2-8.2)
[2022-12-18 22:43] LABS: Hepatitis B Surface Antigen Nonreactive; Hepatitis C IgG Antibody Nonreactive
[2022-12-18 23:08] LABS: Ceruloplasmin 18.3 mg/dL (20.0-60.0)
[2022-12-19 09:48] LABS: Albumin 4.6 d/dL (3.8-4.9)
== END | disposition home or self-care (01) ==
LOC: LABWHC1 14:53
PROVIDERS: ATTEND Internal Medicine Gastroenterology
DX: R74.8 Abnormal levels of other serum enzymes (principal)
CPT/HCPCS: 36415; 80053; 82103; 82390; 82728; 83516; 83540; 83550; 84165; 85025; 86038; 86803; 87340

== ENCOUNTER → 2023-03-12 | Outpatient (CLI) | payer BC ==
--- NOTE | 2023-03-13 08:48 | MR ---
EXAMINATION TYPE: MR cervical spine wo con DATE OF EXAM: 03/12/2023 9:11 PM CLINICAL INDICATION:Male, 63 years old with history of M54.12 RADICULOPATHY, CERVICAL REGION; PHH, Ne ck pain into both arms/elbows, Hx of cervical fusion May 2022 COMPARISON: 04/02/2018. CT 06/11/2022. TECHNIQUE: Multi planar, multi sequence imaging was performed utilizing: T1-weighted, T2-weighted, an d turbo inversion recovery imaging of the cervical spine. IV Contrast: cc (none if empty) FINDINGS: Alignment: The cervical vertebral bodies have preserved heights. Alignment is within normal limits gi avila patient positioning. Bones: Postsurgical changes to C4-C7. Abnormal bone marrow edema on inversion recovery sequences. Cord: The spinal cord is unremarkable with regards to their signal intensity and morphology. Discs: Post surgical changes at C4-C5 and C6-C7. No major disc signals are maintained. C2-C3: No significant disc pathology. The spinal canal is patent. No neural foraminal stenosis. C3-C4: No significant disc pathology. The spinal canal is patent. Bilateral facet and uncovertebral joint arthropathy are present with moderate to severe left and moderate right neural foraminal stenos is. C4-C5: The disc appears surgically absent. The spinal canal is patent. Bilateral facet and uncoverte bral joint arthropathy are present with moderate left and mild right neural foraminal stenosis. C5-C6: A majority of the disc is absent. The spinal canal is patent. Bilateral facet and uncovertebr al joint arthropathy are present with mild to moderate left and moderate right bilateral neural eusebio inal stenosis. C6-C7: The disc appears surgically absent. The spinal canal is patent. Bilateral facet and uncoverte bral joint arthropathy are present with mild to moderate bilateral neural foraminal stenosis. C7-T1: No significant disc pathology. The spinal canal is patent. No neural foraminal stenosis. Other: None. IMPRESSION: Overall findings not significantly changed from prior. Postsurgical changes without evidence for significant spinal canal stenosis. There is multilevel neur al foraminal stenosis as described above. Findings worse at C3-C4 on the left.
== END | disposition home or self-care (01) ==
LOC: RADMRIMAIN 20:45
PROVIDERS: ATTEND Student in an Organized Health Care Education/Training Program
DX: M54.12 Radiculopathy, cervical region (principal); Z98.1 Arthrodesis status
CPT/HCPCS: 72141

== ENCOUNTER → 2023-05-24 | Outpatient (CLI) | payer BC ==
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
== END | disposition home or self-care (01) ==
LOC: RADMRIMAIN 07:31
PROVIDERS: ATTEND Student in an Organized Health Care Education/Training Program
DX: M51.16 Intervertebral disc disorders with radiculopathy, lumbar region (principal); M47.27 Other spondylosis with radiculopathy, lumbosacral region; M99.73 Connective tissue and disc stenosis of intervertebral foramina of lumbar region; M48.061 Spinal stenosis, lumbar region without neurogenic claudication; V89.2XXA Person injured in unspecified motor-vehicle accident, traffic, initial encounter
CPT/HCPCS: 72148; A9585